=== PATIENT | female | born 1940 | race Caucasian/White ===

== ENCOUNTER 2017-09-16 21:42 | Inpatient (IN) | payer MEDICARE, MEDICAID ==
[~2017-09-16] VITALS: Ht 170.2 cm; Wt 69.9 kg
[~2017-09-16 21:42] MED LIST: AMOX500C2; DIA2T; EFAV600T; FURO20TA3; LISI-206; MECL25CH20; OMEP20TA44; OXYCONTIN; PEGANONE; PREMARIN; PRO10T; TENO300T; [UNRECOGNIZED DRUG - CODE]
[2017-09-16 22:13] LABS: Basophils # (auto) 0.1 uL; Basophils % (auto) 0.4 % (0.0-2.0); Eosinophils # (auto) 0.1 uL; Eosinophils % (auto) 0.7 % (0.0-7.0); Hematocrit 43.2 % (36.0-46.0); Hemoglobin 14.4 g/dL (12.2-16.2); Lymphocytes # (auto) 2.4 uL; Lymphocytes % (auto) 17.8 % (10.0-50.0); Mean Corpuscular Hgb Conc. 33.5 g/dL (32.0-36.0); Mean Corpuscular Volume 95.6 fL (80.0-100.0); Monocytes # (auto) 0.6 uL; Monocytes % (auto) 4.5 % (0.0-12.0); Neutrophils # (auto) 10.2 uL; Neutrophils % (auto) 76.6 % (37.0-80.0); Platelet Count (auto) 310 10^3/uL (140-450); Red Blood Cells 4.52 10^6/uL (4.0-5.20); Red Cell Distribution Width 14.4 % (11.8-14.3); White Blood Cell 13.4 10^3/uL (4.4-10.8)
[2017-09-16 22:38] LABS: Albumin 2.9 g/dL (3.4-5.0); Blood Urea Nitrogen 14 mg/dL (7-18); Calcium 8.3 mg/dL (8.5-10.1); Chloride 106 mmol/L (98-107); Lipase 84 U/L (73-393); Potassium 3.6 mmol/L (3.5-5.1); Sodium 138 mmol/L (136-145)
[2017-09-16 22:41] LABS: Alanine Aminotransferase 32 U/L (13-56); Amylase 33 U/L (25-115); Anion Gap 12 (5-15); Aspartate Aminotransferase 61 U/L (15-37); BUN/Creatinine Ratio 13.3; Carbon Dioxide 20 mmol/L (21-32); GFR African American 66 mL/min; GFR Non-African American 54 mL/min; Glucose 170 mg/dL (74-106)
[2017-09-16 22:43] LABS: INR 0.99 (0.9-1.15); Partial Thromboplastin Time 36.8 sec (22.64-33.71); Prothrombin Time 10.8 sec (9.37-12.3)
[2017-09-16] MEDS ORDERED: ONDANSETRON HCL 4 MG/2 ML VIAL IV ONE (22:45)
[2017-09-16] MEDS ORDERED: SODIUM CHLORIDE 0.9% 500 ML IV ONE (22:45)
[2017-09-16] MEDS ORDERED: MORPHINE SULFATE 4 MG/ML SYR/VIAL IV ONE (22:45)
[2017-09-16 22:51] LABS: Alkaline Phosphatase 116 U/L (45-117); Bilirubin, Total 0.4 mg/dL (0.2-1.0); Total Protein 8.3 g/dL (6.4-8.2)
[2017-09-17] MEDS ORDERED: KETOROLAC TROMETH 30 MG/ML 1ML VIAL IV ONE ×2 (01:30→01:45)
[2017-09-17] MEDS ORDERED: LORazepam 2MG/ML-1ML VIAL IV ONE (01:45)
[2017-09-17] MEDS ORDERED: ACETAMINOPHEN 325 MG TAB PO PRN (03:45)
[2017-09-17] MEDS ORDERED: FLEET ENEMA(ADULT) 135 ML PR ONE (03:45)
[2017-09-17 04:56] LABS: Urine Bacteria FEW /hpf (None Seen); Urine Blood Negative /uL (Negative); Urine Specific Gravity 1.022 (1.001-1.035); Urine WBC 101 /hpf (0 - 5)
[2017-09-17] MEDS: SODIUM CHLORIDE 0.9% 1,000 ML IV SCH ×2 (05:00→18:35)
[2017-09-17] MEDS: FAMOTIDINE 20 MG TAB PO SCH ×2 (09:55→21:13)
[2017-09-17] MEDS: ENOXAPARIN SOD 40 MG/0.4 ML SYRINGE SC SCH (09:55)
[2017-09-17] MEDS: DOCUSATE SOD 100 MG CAP PO SCH ×2 (09:55→21:13)
[2017-09-17] MEDS ORDERED: SUSTIVA 600 MG PO SCH (10:00)
[2017-09-17] MEDS ORDERED: VIREAD 300 MG PO SCH (10:00)
[2017-09-17] MEDS ORDERED: LISINOPRIL 10 MG TAB PO SCH (10:00)
[2017-09-17] MEDS ORDERED: PEGANONE PO SCH (10:00)
[2017-09-17] MEDS ORDERED: EPZICOM PO SCH (10:00)
[2017-09-17] MEDS: KETOROLAC TROMETH 30 MG/ML 1ML VIAL IV PRN ×2 (11:01→21:13)
[2017-09-17] MEDS: FUROSEMIDE 20 MG TAB PO SCH (11:14)
[2017-09-17 12:00] VITALS: BP 143/61
[2017-09-17] MEDS ORDERED: cefTRIAXone 1GM/10ml IVPUSH 10 ML IV ONE (13:00)
[2017-09-17] MEDS ORDERED: LISI2.5T47 PO (15:01)
[2017-09-17] MEDS ORDERED: OXYC80TA PO (15:02)
[2017-09-17] MEDS ORDERED: OME20GT PO (15:05)
[2017-09-17] MEDS ORDERED: ESTR0.3T PO (15:06)
[2017-09-17] MEDS ORDERED: DIAZ-104 PO (15:09)
[2017-09-17] MEDS ORDERED: OMEP20TA PO (15:12)
[2017-09-17] MEDS ORDERED: PRO10T PO (15:16)
[2017-09-17] MEDS ORDERED: LUBI24CA6 PO (15:17)
[2017-09-17 17:15] VITALS: BP 135/75
[2017-09-17] MEDS: EPZICOM PO SCH (18:35)
[2017-09-17] MEDS: SUSTIVA 600 MG PO SCH (18:36)
[2017-09-17] MEDS: VIREAD 300 MG PO SCH (18:36)
[2017-09-17 22:00] VITALS: BP 128/58
[2017-09-18] VITALS (7 sets, daily range): BP systolic 127–142; BP diastolic 55–75
[2017-09-18] MEDS: SODIUM CHLORIDE 0.9% 1,000 ML IV SCH ×2 (05:58→17:53)
[2017-09-18 07:22] LABS: Basophils # (auto) 0 uL; Basophils % (auto) 0.6 % (0.0-2.0); Eosinophils # (auto) 0.1 uL; Eosinophils % (auto) 2.3 % (0.0-7.0); Lymphocytes # (auto) 1.3 uL; Lymphocytes % (auto) 25.9 % (10.0-50.0); Mean Corpuscular Hemoglobin 32.3 pg (28.0-32.0); Mean Corpuscular Hgb Conc. 33.4 g/dL (32.0-36.0); Mean Corpuscular Volume 96.8 fL (80.0-100.0); Monocytes # (auto) 0.3 uL; Monocytes % (auto) 6.4 % (0.0-12.0); Neutrophils # (auto) 3.2 uL; Neutrophils % (auto) 64.8 % (37.0-80.0); Nucleated Red Blood Cells % 0.1 %; Platelet Count (auto) 246 10^3/uL (140-450); Red Blood Cells 4.03 10^6/uL (4.0-5.20); Red Cell Distribution Width 14.6 % (11.8-14.3)
[2017-09-18 07:45] LABS: Albumin 2.6 g/dL (3.4-5.0); BUN/Creatinine Ratio 8.8; Bilirubin, Total 0.5 mg/dL (0.2-1.0); Calcium 7.5 mg/dL (8.5-10.1); Potassium 3.5 mmol/L (3.5-5.1); Total Protein 7.1 g/dL (6.4-8.2)
[2017-09-18] MEDS: cefTRIAXone 1GM/10ml IVPUSH 10 ML IV SCH (09:53)
[2017-09-18] MEDS: LISINOPRIL 5 MG TAB PO SCH ×2 (09:55→23:01)
[2017-09-18] MEDS: FAMOTIDINE 20 MG TAB PO SCH (09:56)
[2017-09-18] MEDS: DOCUSATE SOD 100 MG CAP PO SCH ×2 (09:58→22:00)
[2017-09-18] MEDS: ENOXAPARIN SOD 40 MG/0.4 ML SYRINGE SC SCH (09:58)
[2017-09-18] MEDS: FUROSEMIDE 20 MG TAB PO SCH (09:58)
[2017-09-18] MEDS: DIAZEPAM 2 MG TAB PO SCH (12:24)
[2017-09-18] MEDS: PEGANONE PO SCH (12:25)
[2017-09-18] MEDS: KETOROLAC TROMETH 30 MG/ML 1ML VIAL IV PRN ×2 (15:04→23:00)
[2017-09-18] MEDS: ONDANSETRON HCL 4 MG/2 ML VIAL IV PRN (15:06)
[2017-09-18] MEDS ORDERED: KETOROLAC TROMETH 30 MG/ML 1ML VIAL IV ONE (17:00)
[2017-09-18] MEDS: EPZICOM PO SCH (18:04)
[2017-09-18] MEDS: VIREAD 300 MG PO SCH (18:04)
[2017-09-18] MEDS: SUSTIVA 600 MG PO SCH (18:04)
[2017-09-18 18:25] LABS: Amylase 31 U/L (25-115); Lipase 273 U/L (73-393)
[2017-09-18] MEDS: PANTOPRAZOLE 40 MG TAB PO SCH (23:00)
[2017-09-19] MEDS ORDERED: KETOROLAC TROMETH 30 MG/ML 1ML VIAL IV ONE (00:15)
[2017-09-19] MEDS: ONDANSETRON HCL 4 MG/2 ML VIAL IV PRN ×3 (02:09→22:36)
[2017-09-19] MEDS: DIAZEPAM 2 MG TAB PO SCH (02:10)
[2017-09-19 05:32] LABS: Basophils # (auto) 0 uL; Basophils % (auto) 0.8 % (0.0-2.0); Eosinophils # (auto) 0.1 uL; Eosinophils % (auto) 1.2 % (0.0-7.0); Hemoglobin 12.7 g/dL (12.2-16.2); Lymphocytes # (auto) 1.5 uL; Lymphocytes % (auto) 26.4 % (10.0-50.0); Mean Corpuscular Hemoglobin 32.1 pg (28.0-32.0); Mean Corpuscular Hgb Conc. 33.3 g/dL (32.0-36.0); Mean Corpuscular Volume 96.3 fL (80.0-100.0); Monocytes # (auto) 0.4 uL; Monocytes % (auto) 6.5 % (0.0-12.0); Neutrophils # (auto) 3.6 uL; Neutrophils % (auto) 65.1 % (37.0-80.0); Nucleated Red Blood Cells % 0.1 %; Platelet Count (auto) 236 10^3/uL (140-450); Red Blood Cells 3.95 10^6/uL (4.0-5.20); Red Cell Distribution Width 14.8 % (11.8-14.3); White Blood Cell 5.5 10^3/uL (4.4-10.8)
[2017-09-19 05:53] LABS: Albumin 2.4 g/dL (3.4-5.0); BUN/Creatinine Ratio 8.3; Calcium 7.6 mg/dL (8.5-10.1); Potassium 3.3 mmol/L (3.5-5.1)
[2017-09-19 05:55] LABS: Bilirubin, Total 1.4 mg/dL (0.2-1.0); Total Protein 7.1 g/dL (6.4-8.2)
[2017-09-19 05:58] VITALS: BP 137/69
[2017-09-19] MEDS: SODIUM CHLORIDE 0.9% 1,000 ML IV SCH ×2 (06:11→18:15)
[2017-09-19] MEDS: KETOROLAC TROMETH 30 MG/ML 1ML VIAL IV PRN ×4 (06:11→22:37)
[2017-09-19 07:43] VITALS: BP 128/59
[2017-09-19] MEDS ORDERED: GASTROGRAFIN 120 ML SOL ONE ×2 (08:41→09:24)
[2017-09-19] MEDS ORDERED: EZ-GAS II GRANULES (RADIOLOGY USE) PO ONE ×2 (08:42→09:24)
[2017-09-19] MEDS: cefTRIAXone 1GM/10ml IVPUSH 10 ML IV SCH (09:27)
[2017-09-19 11:51] VITALS: BP 122/55
[2017-09-19] MEDS: FUROSEMIDE 20 MG TAB PO SCH (12:00)
[2017-09-19] MEDS: DOCUSATE SOD 100 MG CAP PO SCH ×2 (12:01→22:00)
[2017-09-19] MEDS: PANTOPRAZOLE 40 MG TAB PO SCH ×2 (12:01→22:34)
[2017-09-19] MEDS: LISINOPRIL 5 MG TAB PO SCH ×2 (12:02→22:35)
[2017-09-19] MEDS: PEGANONE PO SCH (12:03)
[2017-09-19 16:23] VITALS: BP 138/48
[2017-09-19] MEDS: EPZICOM PO SCH (18:12)
[2017-09-19] MEDS: SUSTIVA 600 MG PO SCH (18:12)
[2017-09-19] MEDS: VIREAD 300 MG PO SCH (18:13)
[2017-09-19] MEDS ORDERED: POTASSIUM CHL 10 Meq TABLET PO ONE (20:00)
[2017-09-19 22:00] VITALS: BP 126/52
[2017-09-20] MEDS ORDERED: traZODone HCL 50 MG TAB PO ONE (00:30)
[2017-09-20 04:59] VITALS: BP 111/40
[2017-09-20 05:49] LABS: Basophils # (auto) 0 uL; Basophils % (auto) 0.4 % (0.0-2.0); Eosinophils # (auto) 0.1 uL; Hematocrit 36.3 % (36.0-46.0); Hemoglobin 11.9 g/dL (12.2-16.2); Lymphocytes # (auto) 1.1 uL; Lymphocytes % (auto) 18.5 % (10.0-50.0); Mean Corpuscular Hemoglobin 32.5 pg (28.0-32.0); Mean Corpuscular Hgb Conc. 32.9 g/dL (32.0-36.0); Mean Corpuscular Volume 98.8 fL (80.0-100.0); Monocytes # (auto) 0.5 uL; Monocytes % (auto) 7.7 % (0.0-12.0); Neutrophils # (auto) 4.5 uL; Neutrophils % (auto) 72.4 % (37.0-80.0); Nucleated Red Blood Cells % 0.1 %; Platelet Count (auto) 224 10^3/uL (140-450); Red Blood Cells 3.68 10^6/uL (4.0-5.20); White Blood Cell 6.2 10^3/uL (4.4-10.8)
[2017-09-20 06:05] LABS: Albumin 2.5 g/dL (3.4-5.0); BUN/Creatinine Ratio 11.1; Bilirubin, Total 1.3 mg/dL (0.2-1.0); Calcium 7.8 mg/dL (8.5-10.1); Potassium 3.2 mmol/L (3.5-5.1); Total Protein 6.7 g/dL (6.4-8.2)
[2017-09-20] MEDS: SODIUM CHLORIDE 0.9% 1,000 ML IV SCH ×2 (06:46→19:15)
[2017-09-20 07:45] VITALS: BP 116/38
[2017-09-20 08:00] VITALS: BP 115/37
[2017-09-20] MEDS ORDERED: POTASSIUM CHL 10% (20 MEQ/15ML) 15ml ORAL SOLN PO ONE (09:00)
[2017-09-20] MEDS: KETOROLAC TROMETH 30 MG/ML 1ML VIAL IV PRN ×3 (09:15→22:00)
[2017-09-20] MEDS: FUROSEMIDE 20 MG TAB PO SCH (09:17)
[2017-09-20] MEDS: PANTOPRAZOLE 40 MG TAB PO SCH ×2 (09:17→21:59)
[2017-09-20] MEDS: DOCUSATE SOD 100 MG CAP PO SCH ×2 (09:18→21:59)
[2017-09-20] MEDS: cefTRIAXone 1GM/10ml IVPUSH 10 ML IV SCH (09:24)
[2017-09-20] MEDS: PEGANONE PO SCH (11:41)
[2017-09-20] MEDS: DIAZEPAM 2 MG TAB PO SCH (11:42)
[2017-09-20] MEDS ORDERED: HYOSCYAMINE SULF 0.125 MG TAB SL PRN (13:15)
[2017-09-20 16:25] VITALS: BP 105/46
[2017-09-20] MEDS: VIREAD 300 MG PO SCH (17:59)
[2017-09-20] MEDS: SUSTIVA 600 MG PO SCH (17:59)
[2017-09-20] MEDS: EPZICOM PO SCH (17:59)
[2017-09-20] MEDS: POTASSIUM CHL 10% (20 MEQ/15ML) 15ml ORAL SOLN PO SCH ×2 (18:00→18:03)
[2017-09-20 21:45] VITALS: BP 122/51
[2017-09-21 05:14] VITALS: BP 129/52
[2017-09-21 06:35] LABS: Basophils # (auto) 0 uL; Basophils % (auto) 0.5 % (0.0-2.0); Eosinophils # (auto) 0 uL; Eosinophils % (auto) 0.6 % (0.0-7.0); Hematocrit 36.4 % (36.0-46.0); Hemoglobin 12.3 g/dL (12.2-16.2); Lymphocytes # (auto) 1.1 uL; Lymphocytes % (auto) 14.6 % (10.0-50.0); Mean Corpuscular Hemoglobin 32.9 pg (28.0-32.0); Mean Corpuscular Hgb Conc. 33.8 g/dL (32.0-36.0); Mean Corpuscular Volume 97.2 fL (80.0-100.0); Monocytes # (auto) 0.5 uL; Monocytes % (auto) 6.7 % (0.0-12.0); Neutrophils # (auto) 6.1 uL; Neutrophils % (auto) 77.6 % (37.0-80.0); Platelet Count (auto) 239 10^3/uL (140-450); Red Blood Cells 3.74 10^6/uL (4.0-5.20); Red Cell Distribution Width 15.4 % (11.8-14.3); White Blood Cell 7.9 10^3/uL (4.4-10.8)
[2017-09-21 06:57] LABS: Albumin 2.6 g/dL (3.4-5.0); Bilirubin, Total 1.8 mg/dL (0.2-1.0); Calcium 8.3 mg/dL (8.5-10.1); Potassium 3.3 mmol/L (3.5-5.1)
[2017-09-21] MEDS: SODIUM CHLORIDE 0.9% 1,000 ML IV SCH ×2 (07:45→20:15)
[2017-09-21 08:00] VITALS: BP 119/56
[2017-09-21] MEDS ORDERED: POTASSIUM CHL 10% (20 MEQ/15ML) 15ml ORAL SOLN PO ONE (09:00)
[2017-09-21] MEDS: POTASSIUM CHL 10% (20 MEQ/15ML) 15ml ORAL SOLN PO SCH (10:00)
[2017-09-21] MEDS: KETOROLAC TROMETH 30 MG/ML 1ML VIAL IV PRN ×2 (10:14→17:49)
[2017-09-21] MEDS: FUROSEMIDE 20 MG TAB PO SCH (10:20)
[2017-09-21 12:00] VITALS: BP 139/60
[2017-09-21] MEDS: PEGANONE PO SCH (12:00)
[2017-09-21] MEDS: DIAZEPAM 2 MG TAB PO SCH (12:17)
[2017-09-21] MEDS: EPZICOM PO SCH (12:18)
[2017-09-21 17:30] VITALS: BP 156/51
[2017-09-21] MEDS: SUSTIVA 600 MG PO SCH (17:46)
[2017-09-21] MEDS: VIREAD 300 MG PO SCH (17:47)
[2017-09-21] MEDS: HYOSCYAMINE SULF 0.125 MG TAB PO PRN ×2 (17:50→17:51)
[2017-09-21] MEDS: BOOST 8 ounces PO SCH (18:00)
[2017-09-21] MEDS: ONDANSETRON HCL 4 MG/2 ML VIAL IV PRN (21:56)
[2017-09-21 22:00] VITALS: BP 123/53
[2017-09-22] MEDS: KETOROLAC TROMETH 30 MG/ML 1ML VIAL IV PRN ×3 (00:02→17:58)
[2017-09-22 05:00] VITALS: BP 131/66
[2017-09-22 08:00] VITALS: BP 93/45
[2017-09-22] MEDS: BOOST 8 ounces PO SCH ×2 (08:00→17:57)
[2017-09-22] MEDS: FUROSEMIDE 20 MG TAB PO SCH (10:11)
[2017-09-22] MEDS: POTASSIUM CHL 10% (20 MEQ/15ML) 15ml ORAL SOLN PO SCH (10:12)
[2017-09-22] MEDS: SODIUM CHLORIDE 0.9% 1,000 ML IV SCH ×2 (10:18→21:15)
[2017-09-22] MEDS: ONDANSETRON HCL 4 MG/2 ML VIAL IV PRN ×2 (10:22→19:44)
[2017-09-22] MEDS: DIAZEPAM 2 MG TAB PO SCH (11:49)
[2017-09-22] MEDS: CHOLESTYRAMINE 4 GM POWDER PO SCH ×2 (11:50→22:09)
[2017-09-22] MEDS: PEGANONE PO SCH (11:50)
[2017-09-22 12:00] VITALS: BP 125/49
[2017-09-22] MEDS ORDERED: CHOLESTYRAMINE 4 GM POWDER PO SCH (12:00)
[2017-09-22 17:00] VITALS: BP 152/70
[2017-09-22] MEDS: SUSTIVA 600 MG PO SCH (17:57)
[2017-09-22] MEDS: EPZICOM PO SCH (17:57)
[2017-09-22] MEDS: VIREAD 300 MG PO SCH (17:57)
[2017-09-22 22:00] VITALS: BP 131/57
[2017-09-23] MEDS: HYOSCYAMINE SULF 0.125 MG TAB PO PRN ×2 (01:01→06:25)
[2017-09-23] MEDS: KETOROLAC TROMETH 30 MG/ML 1ML VIAL IV PRN ×2 (01:01→06:24)
[2017-09-23 05:00] VITALS: BP 144/69
[2017-09-23 09:05] VITALS: BP 132/63
== END 2017-09-23 11:30 | disposition home or self-care (01) | DRG 391 ==
LOC: ER 21:42 → OVERFLOW 21:43 → CENTRAL 09-17 11:33
PROVIDERS: ADMIT Nurse Practitioner; ATTEND Family Medicine
DX: K59.00 Constipation, unspecified (principal); E43 Unspecified severe protein-calorie malnutrition; E86.0 Dehydration; I34.1 Nonrheumatic mitral (valve) prolapse; K75.9 Inflammatory liver disease, unspecified; K76.0 Fatty (change of) liver, not elsewhere classified; N39.0 Urinary tract infection, site not specified; Z79.899 Other long term (current) drug therapy; K57.30 Diverticulosis of large intestine without perforation or abscess without bleeding; F41.9 Anxiety disorder, unspecified; I10 Essential (primary) hypertension; G89.29 Other chronic pain; K22.4 Dyskinesia of esophagus; K52.9 Noninfective gastroenteritis and colitis, unspecified; K22.5 Diverticulum of esophagus, acquired; Z90.49 Acquired absence of other specified parts of digestive tract; Z90.710 Acquired absence of both cervix and uterus; Z88.5 Allergy status to narcotic agent; Z88.8 Allergy status to other drugs, medicaments and biological substances
CPT/HCPCS: 36415; 71045; 71046; 74176; 74247; 76705; 80053; 81001; 82150; 83690; 83880; 83986; 84443; 84484; 85025; 85048; 85610; 85730; 87040; 87081; 87086; 87493; 93005; 94761; 96361; 96372; 96374; 96375; 97116; J1885; J2405

== ENCOUNTER → 2018-05-09 | Outpatient (CLI) | payer MEDICARE, MEDICAID ==
[~2018-05-09] MED LIST changes: -AMOX500C2; -DIA2T; -EFAV600T; +EFAV600T PO; -FURO20TA3; -LISI-206; +LISI2.5T47 PO; +LUBI24CA6 PO; -MECL25CH20; +OMEP20TA PO; -OMEP20TA44; +OXYC80TA PO; -OXYCONTIN; -PREMARIN; -PRO10T; +PRO10T PO; -TENO300T; +TENO300T PO; -[UNRECOGNIZED DRUG - CODE]; +[UNRECOGNIZED DRUG - CODE] PO
[2018-05-09 10:43] LABS: Folate (Folic Acid) 9.56 ng/mL (5.38-24)
== END | disposition home or self-care (01) ==
LOC: LAB 09:17
PROVIDERS: ATTEND Internal Medicine
DX: B20 Human immunodeficiency virus [HIV] disease (principal)
CPT/HCPCS: 82607; 82746; 87522

== ENCOUNTER 2018-06-26 16:42 | Emergency (ER) | payer MEDICARE, MEDICAID ==
[~2018-06-26] VITALS: Ht 167.6 cm; Wt 64.4 kg
[2018-06-26 19:30] VITALS: BP 110/70
== END 2018-06-26 19:40 | disposition home or self-care (01) ==
LOC: ER 16:44
DX: S29.011A Strain of muscle and tendon of front wall of thorax, initial encounter (principal); B20 Human immunodeficiency virus [HIV] disease; M25.552 Pain in left hip; M79.652 Pain in left thigh; Z88.6 Allergy status to analgesic agent; Z88.8 Allergy status to other drugs, medicaments and biological substances; W18.39XA Other fall on same level, initial encounter; Y93.89 Activity, other specified; Y92.098 Other place in other non-institutional residence as the place of occurrence of the external cause; Y99.8 Other external cause status
CPT/HCPCS: 71250; 73700; 74176

== ENCOUNTER 2019-12-28 10:40 | Inpatient (IN) | payer MEDICARE, MEDICAID ==
[~2019-12-28] VITALS: Ht 167.6 cm; Wt 68.5 kg
[~2019-12-28 10:40] MED LIST changes: -PRO10T PO; +PROC10TA2 PO
[2019-12-28 12:34] LABS: Basophils # (auto) 0 10 ^3/uL (0-0.2); Basophils % (auto) 0.2 % (0.0-2.0); Eosinophils # (auto) 0.1 10 ^3/uL (0-0.8); Eosinophils % (auto) 0.5 % (0.0-7.0); Hematocrit 51.5 % (36.0-46.0); Hemoglobin 16.8 g/dL (12.2-16.2); Lymphocytes # (auto) 2.4 10 ^3/uL (0.4-5.4); Lymphocytes % (auto) 15.8 % (10.0-50.0); Mean Corpuscular Hemoglobin 30.9 pg (28.0-32.0); Mean Corpuscular Hgb Conc. 32.5 g/dL (32.0-36.0); Mean Corpuscular Volume 94.9 fL (80.0-100.0); Monocytes % (auto) 6.7 % (0.0-12.0); Neutrophils # (auto) 11.7 10 ^3/uL (1.6-8.6); Neutrophils % (auto) 76.8 % (37.0-80.0); Platelet Count (auto) 354 10^3/uL (140-450); Red Blood Cells 5.43 10^6/uL (4.0-5.20); Red Cell Distribution Width 14.7 % (11.8-14.3); White Blood Cell 15.3 10^3/uL (4.4-10.8)
[2019-12-28 13:02] LABS: Anion Gap 8 (5-15); Blood Urea Nitrogen 35 mg/dL (7-18); Carbon Dioxide 18 mmol/L (21-32); Chloride 112 mmol/L (98-107); Glucose 136 mg/dL (74-106); Potassium 3.1 mmol/L (3.5-5.1); Sodium 138 mmol/L (136-145)
[2019-12-28 13:03] LABS: Alanine Aminotransferase 29 U/L (13-56); Albumin 3.5 g/dL (3.4-5.0); Alkaline Phosphatase 103 U/L (45-117); Aspartate Aminotransferase 25 U/L (15-37); BUN/Creatinine Ratio 29.7; Bilirubin, Total 0.6 mg/dL (0.2-1.0); Calcium 9.2 mg/dL (8.5-10.1); GFR African American 57 mL/min; GFR Non-African American 47 mL/min; Magnesium 2.7 mg/dL (1.6-2.6); Total Protein 8.5 g/dL (6.4-8.2)
[2019-12-28] MEDS ORDERED: MORPHINE SULFATE 4 MG/ML SYR/VIAL IV ONE (13:15)
[2019-12-28] MEDS ORDERED: ONDANSETRON HCL 4 MG/2 ML VIAL IV ONE ×2 (13:15→14:15)
[2019-12-28 13:34] LABS: Amylase 69 U/L (25-115); Lipase 369 U/L (73-393)
[2019-12-28] MEDS ORDERED: oxyCODONE ER 20 MG TAB PO ONE (15:00)
[2019-12-28] MEDS ORDERED: LORazepam 2MG/ML-1ML VIAL IV ONE (16:15)
[2019-12-28] MEDS ORDERED: SODIUM CHLORIDE 0.9% 1,000 ML IV ONE (17:00)
[2019-12-28] MEDS ORDERED: metroNIDAZOLE 500MG/100ML 100 ML IV ONE (17:00)
[2019-12-28] MEDS ORDERED: NITROGLYCERIN 0.4 MG SL TAB SL PRN ×2 (18:45→21:00)
[2019-12-28] MEDS ORDERED: SODIUM CHLORIDE 0.9% 1,000 ML IV SCH (19:03)
[2019-12-28] MEDS ORDERED: FAMOTIDINE (10MG/ML) 2ML VL IV SCH ×2 (19:15→22:00)
[2019-12-28] MEDS ORDERED: traMADol HCL 50 MG TAB PO PRN (19:15)
[2019-12-28] MEDS ORDERED: ACETAMINOPHEN 500 MG TAB PO PRN ×2 (19:15→21:00)
[2019-12-28] MEDS ORDERED: cefTRIAXone 1GM/50ML D5W 50 ML IV ONE ×2 (19:15→21:05)
[2019-12-28] MEDS ORDERED: ONDANSETRON HCL 4 MG/2 ML VIAL IV PRN (19:15)
[2019-12-28] MEDS ORDERED: POTASSIUM EFFERVESENT TAB 25 MEQ PO ONE (19:30)
[2019-12-28] MEDS ORDERED: SOD CHL 0.9%/ KCL 40MEQ 1,000 ML IV SCH (19:45)
--- NOTE | 2019-12-28 20:22 | NUR ---
Telemetry admit from ER ASAD PAUL admitted to Telemetry unit after SBAR received. Patient oriented to Charla Buckner, primary RN, unit, room, bed, and unit policies regarding patient care and visiting hours. Patient now on continuous telemetry monitoring, tele box # [50] and telemetry reading on arrival to unit is [SB 57]. PATIENT DENIED PAIN AND NAUSEA AT THIS TIME. Patient weighed by bedscale and encouraged to call if they need something. All questions and concerns addressed, patient verbalized understanding. Note: []
[2019-12-28 20:40] VITALS: BP 133/61
--- NOTE | 2019-12-28 21:00 | NUR ---
PHARMACY CALLED TO FIX PATIENT'S MEDICATION IN PYXIS. CONTINUE CARE.
[2019-12-28] MEDS ORDERED: POTASSIUM EFFERVESENT TAB 25 MEQ ONE (21:06)
[2019-12-28] MEDS: ATORVASTATIN 20 MG TAB PO SCH (21:16)
[2019-12-28] MEDS: SOD CHL 0.9%/ KCL 40MEQ 1,000 ML IV SCH (21:19)
[2019-12-28 22:00] VITALS: BP 133/61
[2019-12-28] MEDS ORDERED: METOPROLOL TARTRATE 25 MG TAB PO SCH (22:00)
[2019-12-28] MEDS ORDERED: ATORVASTATIN 20 MG TAB PO SCH (22:00)
[2019-12-28] MEDS: METOPROLOL TARTRATE 25 MG TAB PO SCH (22:00)
[2019-12-28] MEDS ORDERED: metroNIDAZOLE 500MG/100ML 100 ML IV SCH (22:00)
[2019-12-28] MEDS ORDERED: BICT1TAB PO (22:08)
[2019-12-28] MEDS: metroNIDAZOLE 500MG/100ML 100 ML IV SCH (22:53)
--- NOTE | 2019-12-29 02:19 | NUR ---
PATIENT SLEEPING. NO S/S OF DISTRESS NOTED. CONTINUE TO MONITOR.
[2019-12-29 05:00] VITALS: BP 124/60
[2019-12-29] MEDS: SOD CHL 0.9%/ KCL 40MEQ 1,000 ML IV SCH ×2 (05:54→17:28)
[2019-12-29] MEDS: metroNIDAZOLE 500MG/100ML 100 ML IV SCH (05:54)
--- NOTE | 2019-12-29 06:42 | NUR ---
PATIENT'S OWN MEDICATIONS SENT TO PHARMACY.
--- NOTE | 2019-12-29 07:45 | NUR ---
Opening shift note Assumed care of patient from NOC RN. Patient is AOx4 no s/s of distress or SOB noted. Bed is in lowest locked position, side rails up x2, and call light is within reach. Updated patient on plan of care and patient verbalized understanding. Will continue to monitor.
[2019-12-29 09:00] VITALS: BP 116/46
[2019-12-29] MEDS ORDERED: cefTRIAXone 1GM/50ML D5W 50 ML IV SCH (09:00)
[2019-12-29] MEDS ORDERED: NITROGLYCERIN 0.2MG/HR TOPICAL PATCH TD SCH (10:00)
[2019-12-29] MEDS: METOPROLOL TARTRATE 25 MG TAB PO SCH ×2 (10:00→21:47)
[2019-12-29] MEDS ORDERED: ASPirin 81 mg TAB PO SCH (10:00)
[2019-12-29] MEDS ORDERED: PEGANONE PO SCH ×2 (10:00)
[2019-12-29] MEDS ORDERED: [UNRECOGNIZED DRUG - OTHER] PO SCH ×2 (10:00)
[2019-12-29] MEDS ORDERED: ENOXAPARIN SOD 40 MG/0.4 ML SYRINGE SC SCH (10:00)
--- NOTE | 2019-12-29 10:10 | NUR ---
Physician rounding Dr. Riddle at bedside, updated patient on plan of care and patient verbalized understanding. New orders received, will follow through.
[2019-12-29] MEDS: FAMOTIDINE (10MG/ML) 2ML VL IV SCH (11:28)
[2019-12-29] MEDS: cefTRIAXone 1GM/50ML D5W 50 ML IV SCH (11:28)
[2019-12-29] MEDS: ASPirin 81 mg TAB PO SCH (11:29)
[2019-12-29] MEDS: traMADol HCL 50 MG TAB PO PRN ×2 (11:30→17:28)
[2019-12-29] MEDS: ENOXAPARIN SOD 40 MG/0.4 ML SYRINGE SC SCH (11:31)
[2019-12-29] MEDS: NITROGLYCERIN 0.2MG/HR TOPICAL PATCH TD SCH (11:32)
[2019-12-29 13:00] VITALS: BP 119/49
[2019-12-29] MEDS: [UNRECOGNIZED DRUG - OTHER] PO SCH (13:21)
[2019-12-29] MEDS: TENOFOVIR ALAFENAMIDE PO SCH (13:21)
[2019-12-29] MEDS: BICTEGRAVIR PO SCH (13:21)
[2019-12-29] MEDS: EMTRICITABINE PO SCH (13:21)
--- NOTE | 2019-12-29 13:23 | NUR ---
Physician rounding Dr.N. Warren at bedside, MD updated patient on plan of care, patient verbalized understanding. New orders received, will follow through and will continue care.
[2019-12-29] MEDS: PEGANONE PO SCH (13:27)
--- NOTE | 2019-12-29 14:25 | NUR ---
Received call from microbiology Patient stool tested for C-Diff resulted positive. Will inform MD and charge nurse.
--- NOTE | 2019-12-29 14:27 | NUR ---
Notified MD Riddle regarding lab result, awaiting call back.
--- NOTE | 2019-12-29 14:34 | NUR ---
Received call back from New orders received from Dr. Riddle, will follow thorough.
[2019-12-29 15:28] LABS: Urine Bacteria FEW /hpf (None Seen); Urine Blood TRACE /uL (Negative); Urine Mucus FEW (None Seen); Urine Specific Gravity 1.022 (1.001-1.035); Urine WBC 93 /hpf (0 - 5)
[2019-12-29 15:54] LABS: Alcohol, Urine < 3.0 mg/dL (0-10); Amphetamine Screen, Urine NEGATIVE (NEGATIVE); Barbiturate Scree,Urine NEGATIVE (NEGATIVE); Benzodiazephine Screen, Urine NEGATIVE (NEGATIVE); Cannabinoid Screen, Urine NEGATIVE (NEGATIVE); Cocaine Screen, Urine NEGATIVE (NEGATIVE); Opiate Scree,Urine NEGATIVE (NEGATIVE); Phencyclidine Screen, Urine NEGATIVE (NEGATIVE)
[2019-12-29] MEDS: VANCOMYCIN HCL 125MG/5ML ORAL SOL PO SCH ×3 (16:16→23:36)
[2019-12-29 17:00] VITALS: BP 106/47
[2019-12-29 17:11] LABS: Basophils # (auto) 0.1 10 ^3/uL (0-0.2); Basophils % (auto) 0.6 % (0.0-2.0); Eosinophils # (auto) 0.1 10 ^3/uL (0-0.8); Eosinophils % (auto) 0.6 % (0.0-7.0); Hematocrit 44.1 % (36.0-46.0); Hemoglobin 14.4 g/dL (12.2-16.2); Lymphocytes # (auto) 1.6 10 ^3/uL (0.4-5.4); Lymphocytes % (auto) 15.7 % (10.0-50.0); Mean Corpuscular Hemoglobin 31.1 pg (28.0-32.0); Mean Corpuscular Hgb Conc. 32.6 g/dL (32.0-36.0); Mean Corpuscular Volume 95.4 fL (80.0-100.0); Monocytes # (auto) 0.4 10 ^3/uL (0-1.3); Monocytes % (auto) 4.2 % (0.0-12.0); Neutrophils % (auto) 78.9 % (37.0-80.0); Platelet Count (auto) 278 10^3/uL (140-450); Red Blood Cells 4.62 10^6/uL (4.0-5.20); Red Cell Distribution Width 14.6 % (11.8-14.3); White Blood Cell 10.2 10^3/uL (4.4-10.8)
[2019-12-29 17:16] LABS: Albumin 2.9 g/dL (3.4-5.0); Calcium 8.1 mg/dL (8.5-10.1); Magnesium 2.3 mg/dL (1.6-2.6); Potassium 3.8 mmol/L (3.5-5.1)
[2019-12-29 17:22] LABS: BUN/Creatinine Ratio 22.3; Bilirubin, Total 0.3 mg/dL (0.2-1.0); Total Protein 6.9 g/dL (6.4-8.2)
--- NOTE | 2019-12-29 18:59 | NUR ---
End of shift note Endorsed care to NOC RN. No signs and symptoms of distress noted.
--- NOTE | 2019-12-29 19:50 | NUR ---
RECEIVED PATIENT FROM DAY SHIFT RN. PATIENT RESTING IN BED. NO S/S OF DISTRESS NOTED. C/O PAIN @ 8/10 AFTER PAIN MEDICATION GIVEN EARLIER, REINFORCED SCHEDULE OF PAIN MANAGEMENT, WILL COME BACK FOR PAIN MEDICATION LATER WHEN THE TIME IS DUE AND PER PATIENT REQUESTS. POC INSTRUCTED AND ENCOURAGED PATIENT TO CALL FOR COOLER CONVEYOR LOADER IF NEEDED. BED IN LOWEST LOCKED POSITION WITH SIDE RAILS UP X 2. CALL BECERRIL WITHIN REACH. ALARM ON. CONTINUE TO MONITOR FOR CHANGES Q1H AND PRN.
--- NOTE | 2019-12-29 20:12 | NUR ---
HOSPITALIST Called/paged Dr. IQBAL called re:PATIENT C/O PAIN @ 12/15 AND STATED THAT THE PAIN MEDICATION GIVEN EARLIER DID NOT HELP. WOULD LIKE TO HAVE MORE STRONGER MEDICATION . Waiting for call back. Continue care.
--- NOTE | 2019-12-29 20:25 | NUR ---
HOSPITALIST returned call Dr. OLIVARES returned call, updated on patient status and reason for call, orders received. TORADOL 30MG IM Q8HP. Continue care.
[2019-12-29] MEDS: ONDANSETRON HCL 4 MG/2 ML VIAL IV PRN (20:50)
--- NOTE | 2019-12-29 20:50 | NUR ---
REASSESSED PAIN AT 06/17. PATIENT DENIED NAUSEA. CONTINUE TO MONITOR.
[2019-12-29] MEDS: KETOROLAC TROMETH 30 MG/ML 1ML VIAL IM PRN (20:51)
[2019-12-29] MEDS: ATORVASTATIN 20 MG TAB PO SCH (21:46)
[2019-12-29 22:00] VITALS: BP 120/44
[2019-12-30] MEDS: traMADol HCL 50 MG TAB PO PRN ×2 (00:13→23:38)
--- NOTE | 2019-12-30 00:13 | NUR ---
PATIENT C/O PAIN @ 02/14. INSTRUCTED PATIENT HER TORADOL NOT YET DUE AT THIS TIME, PATIENT IS WILLING TO TRY ULTRAM NOW. MEDICATED PATIENT ORDERED. CONTINUE TO MONITOR.
[2019-12-30] MEDS: SOD CHL 0.9%/ KCL 40MEQ 1,000 ML IV SCH ×2 (03:00→13:22)
--- NOTE | 2019-12-30 03:10 | NUR ---
PATIENT STILL C/O PAIN BUT NO PAIN MEDICATION DUE AT THIS TIME. INSTRUCTED PATIENT ON THE SCHEDULE OF PAIN MANAGEMENT. WILL COME BACK WHEN THE TIME IS DUE. CONTINUE TO MONITOR.
[2019-12-30] MEDS: KETOROLAC TROMETH 30 MG/ML 1ML VIAL IM PRN ×3 (04:55→21:59)
--- NOTE | 2019-12-30 04:55 | NUR ---
MEDICATED PATIENT FOR LEG PAIN @ 01/15 ORDERED. NO REDNESS AND SWELLING NOTED. CONTINUE TO MONITOR.
[2019-12-30 05:00] VITALS: BP 122/48
[2019-12-30] MEDS: VANCOMYCIN HCL 125MG/5ML ORAL SOL PO SCH ×4 (05:53→23:38)
--- NOTE | 2019-12-30 05:53 | NUR ---
REASSESSED PAIN @ 07/15. CONTINUE TO MONITOR.
--- NOTE | 2019-12-30 07:36 | NUR ---
Received patient from [facility] shift rn, alert and oriented x4. No SOB or s/s distress, denies pain at this time. Plan of care discussed, patient verbalized understanding. Bed in low and locked position, call light and phone within reach, bed rails x2 up. Will continue to monitor q1hr and prn.
[2019-12-30 08:00] VITALS: BP 136/48
[2019-12-30 09:00] VITALS: BP 136/58
[2019-12-30] MEDS: cefTRIAXone 1GM/50ML D5W 50 ML IV SCH (09:03)
[2019-12-30] MEDS: ASPirin 81 mg TAB PO SCH (09:03)
[2019-12-30] MEDS: FAMOTIDINE (10MG/ML) 2ML VL IV SCH (09:04)
[2019-12-30] MEDS: NITROGLYCERIN 0.2MG/HR TOPICAL PATCH TD SCH (09:05)
[2019-12-30] MEDS: PEGANONE PO SCH (09:07)
[2019-12-30] MEDS: METOPROLOL TARTRATE 25 MG TAB PO SCH (09:07)
[2019-12-30] MEDS: ENOXAPARIN SOD 40 MG/0.4 ML SYRINGE SC SCH (09:07)
[2019-12-30] MEDS: BICTEGRAVIR PO SCH (09:08)
[2019-12-30] MEDS: TENOFOVIR ALAFENAMIDE PO SCH (09:08)
[2019-12-30] MEDS: [UNRECOGNIZED DRUG - OTHER] PO SCH (09:08)
[2019-12-30] MEDS: EMTRICITABINE PO SCH (09:08)
--- NOTE | 2019-12-30 11:00 | NUR ---
patient's code status updated to DNR per Dr. Riddle. Patient signed and copy in chart
--- NOTE | 2019-12-30 11:51 | NUR ---
Placed ADONIS test to r/o covid per protocol pending transfer to SNF.
[2019-12-30 12:25] LABS: Folate (Folic Acid) 6.1 ng/mL (5.38-24)
--- NOTE | 2019-12-30 12:44 | NUR ---
Nutrition Assessment Notes Please refer to link for full assessment notes. Est Energy needs: 6281-0147 kcals (20-23 kcal/kgBW) Est Protein needs: 72-80 gms/day (1.0-1.1 gm/kgBW) Will continue to monitor and reassess prn. Addendum: 12/30/19 at [address] Amended: Links added.
[2019-12-30] MEDS ORDERED: FOLIC ACID 1 MG TAB PO ONE (12:45)
[2019-12-30] MEDS ORDERED: CYANOCOBALAMIN (B-12) 1000 MCG/1 ML VIAL SUBCUT ONE (12:45)
[2019-12-30 13:00] VITALS: BP 106/48
[2019-12-30] MEDS: ONDANSETRON HCL 4 MG/2 ML VIAL IV PRN (14:22)
--- NOTE | 2019-12-30 15:50 | NUR ---
COVID-19 test (Yarely swab) collected per protocol and taken to lab.
[2019-12-30 17:00] VITALS: BP 121/51
--- NOTE | 2019-12-30 19:40 | NUR ---
Opening Shift Note Assumed care of patient, awake and alert x4. No S/S of distress/SOB or pain. Call light is within reach, side rails up x2, bed is in the lowest position. Instructed on POC and to call for assist PRN, will continue to monitor for changes Q1hr and PRN.
--- NOTE | 2019-12-30 20:09 | NUR ---
PATIENT IS REFUSING THE [facility] INHOUSE COVID SWAB STATING SHE HAS HEMOPHILIA AND BLEEDS EASILY. EXPLAINED TO THE PATIENT THE REASON FOR THE TEST, SHE VERBALIZED UNDERSTANDING AND REFUSED.
[2019-12-30] MEDS: ATORVASTATIN 20 MG TAB PO SCH (21:51)
--- NOTE | 2019-12-30 21:59 | NUR ---
PAIN Patient is complaining of pain 10/0-10 all over, she states it is horrible and hurts everywhere. Toradol administered as ordered, will reassess.
--- NOTE | 2019-12-30 23:15 | NUR ---
PAIN REASSESSMENT Patient states pain is still horrible 10/0-10. Patient asks if there is anything else she can get for pain. Ultram given for pain, will continue to monitor.
--- NOTE | 2019-12-31 00:38 | NUR ---
Patient is now resting in bed asleep. No S/S of pain or distress noted. Call light is within reach.
--- NOTE | 2019-12-31 01:31 | NUR ---
PT refused 2199 vitals RN notified
[2019-12-31] MEDS: SOD CHL 0.9%/ KCL 40MEQ 1,000 ML IV SCH ×3 (02:58→17:04)
[2019-12-31 05:00] VITALS: BP 120/48
[2019-12-31] MEDS: VANCOMYCIN HCL 125MG/5ML ORAL SOL PO SCH ×4 (06:03→21:17)
--- NOTE | 2019-12-31 08:41 | NUR ---
Assessment Patient is a 79-year-old female who is alert and oriented. Prior to admission patient lived home alone and functioned independently. Prior to admission patient could care for her own ADLs. Patient informed me she does not have any medical equipment. Advised patient there is a social service consult for SNF placement for physical therapy. Information and choice letter was given to patient. Patient requested [facility]. Informed patient she has a right to participate in all discharge planning. Patient verbalized understanding discharge plan. Faxed clinical information to [facility]. Addendum: 12/31/19 at 0845 by LATRICE BROWN Amended: Links added.
[2019-12-31 09:00] VITALS: BP 155/88
[2019-12-31] MEDS: FAMOTIDINE (10MG/ML) 2ML VL IV SCH (09:54)
[2019-12-31] MEDS: ASPirin 81 mg TAB PO SCH (09:55)
[2019-12-31] MEDS: FOLIC ACID 1 MG TAB PO SCH (09:55)
[2019-12-31] MEDS: PEGANONE PO SCH (09:56)
[2019-12-31] MEDS: CYANOCOBALAMIN (B-12) 1000 MCG/1 ML VIAL SUBCUT SCH (09:57)
[2019-12-31] MEDS: ENOXAPARIN SOD 40 MG/0.4 ML SYRINGE SC SCH (09:57)
[2019-12-31] MEDS: [UNRECOGNIZED DRUG - OTHER] PO SCH (09:58)
[2019-12-31] MEDS: BICTEGRAVIR PO SCH (09:58)
[2019-12-31] MEDS: EMTRICITABINE PO SCH (09:58)
[2019-12-31] MEDS: TENOFOVIR ALAFENAMIDE PO SCH (09:58)
[2019-12-31] MEDS: NITROGLYCERIN 0.2MG/HR TOPICAL PATCH TD SCH (10:00)
[2019-12-31] MEDS: cefTRIAXone 1GM/50ML D5W 50 ML IV SCH (10:13)
[2019-12-31 13:00] VITALS: BP 144/60
--- NOTE | 2019-12-31 16:00 | NUR ---
REMOVED IV AND HEART MONITOR. SHE SAID THEY WERE BOTHERING HER AND SHE IS GOING HOME TOMORROW. PAGED MD TO NOTIFY PATIENT REFUSING IV AND TELE MONITOR.
[2019-12-31 17:00] VITALS: BP 138/50
--- NOTE | 2019-12-31 19:19 | NUR ---
Opening Shift Note Assumed care of patient, awake and alert. No S/S of distress/SOB or pain. Instructed on POC and to call for assist PRN. Patient refuses to have tele monitor and IV replaced. Educated patient on the importance of the tele monitor and IV access. Patient continues to refuse. Patient verbalized "I dont need it, I am going home tomorrow anyway. Will continue to monitor for changes Q1hr and PRN. Side rails up x2. Bed locked in lowest position. Call light within reach.
[2019-12-31] MEDS: ATORVASTATIN 20 MG TAB PO SCH (21:17)
[2019-12-31 21:46] VITALS: BP 117/78
[2020-01-01 05:00] VITALS: BP 139/50
[2020-01-01] MEDS: SOD CHL 0.9%/ KCL 40MEQ 1,000 ML IV SCH ×2 (05:00→15:00)
[2020-01-01] MEDS: VANCOMYCIN HCL 125MG/5ML ORAL SOL PO SCH ×3 (06:01→18:00)
--- NOTE | 2020-01-01 08:55 | NUR ---
Doctor Venkatesh at bedside discussing poc with patient. patient verbalized understanding and agrees with poc. MD informed that patient is refusing tele box and IV access. New orders received see emr for orders.
[2020-01-01 09:00] VITALS: BP 132/41
[2020-01-01] MEDS: cefTRIAXone 1GM/50ML D5W 50 ML IV SCH (09:00)
--- NOTE | 2020-01-01 09:00 | NUR ---
Stool sample sent to lab.
[2020-01-01] MEDS: CYANOCOBALAMIN (B-12) 1000 MCG/1 ML VIAL SUBCUT SCH (09:18)
[2020-01-01] MEDS: ASPirin 81 mg TAB PO SCH (09:19)
[2020-01-01] MEDS: PEGANONE PO SCH (09:21)
[2020-01-01] MEDS: NITROGLYCERIN 0.2MG/HR TOPICAL PATCH TD SCH (09:21)
[2020-01-01] MEDS: BICTEGRAVIR PO SCH (09:22)
[2020-01-01] MEDS: [UNRECOGNIZED DRUG - OTHER] PO SCH (09:22)
[2020-01-01] MEDS: EMTRICITABINE PO SCH (09:22)
[2020-01-01] MEDS: TENOFOVIR ALAFENAMIDE PO SCH (09:22)
[2020-01-01] MEDS: ENOXAPARIN SOD 40 MG/0.4 ML SYRINGE SC SCH ×2 (09:23→09:38)
[2020-01-01] MEDS: FOLIC ACID 1 MG TAB PO SCH (09:23)
[2020-01-01] MEDS: FAMOTIDINE (10MG/ML) 2ML VL IV SCH (09:23)
[2020-01-01 13:00] VITALS: BP 167/58
[2020-01-01] MEDS: traMADol HCL 50 MG TAB PO PRN ×2 (13:22→22:30)
[2020-01-01] MEDS: metroNIDAZOLE 500 MG TAB PO SCH ×2 (14:13→21:22)
--- NOTE | 2020-01-01 14:23 | NUR ---
Nutrition Followup Notes Pt wt is 73.2 kg Pt was sleeping with no relatives at bedside when rounded this morning. Pt is advanced to a Mechanical Soft diet, appetite is fair aeb ave 67% PO intake x3 meals per RN doc. Pt is with diarrhea per RN doc. Est Energy needs: 2343-8623 kcals (20-23 kcal/kgBW) Est Protein needs: 72-80 gms/day (1.0-1.1 gm/kgBW) Will continue to monitor and reassess prn. LABS: BUN 23 H, Cr 1.03 H, Gluc 145 H, Ca 8.1 L, Alb 2.9 L, Triglycerides 174 H GI: Pt had 5 BM on 12/31 per RN doc BS: 18 mod risk. Refer to wound assessment report for full details. PES: 1) Increased nutrient needs r/t pt medical condition aeb pt with a Clear Liquid diet 2) Altered nutrition related lab values r/t pt current/chronic medical condition aeb hyperglycemia, hypocalcemia, mod hypoalbuminemia, dyslipidemia Comments Will continue to monitor PO status, skin status, pertinent labs and weight trends. Will f/u in 3-5 days. 1) Continue to carefully monitor pt PO intake to meet at least 75% of meals 2) Continue current plan of care
--- NOTE | 2020-01-01 14:52 | NUR ---
RECEIVED PHONE CALL FROM PATIENTS GRANDDAUGHTER STANTON WHO IS PATIENT CAREGIVER PER STANTON SHE IS UNABLE TO TAKE CARE OF PATIENT DUE TO SHE HAS SMALL CHILDREN THAT ARE DOING DISTANT LEARNING AND DOES NOT HAVE THE TIME TO HELP TAKE CARE OF HER GRANDMOTHER. PER STANTON SHE THINKS ITS BEST THAT GRANDMOTHER GOES TO SNF FOR REHAB. PER STANTON SHE SPOKE WITH DOCTOR CRESPO REGARDING PLACEMENT FOR PATIENT.
[2020-01-01 17:00] VITALS: BP 133/53
--- NOTE | 2020-01-01 19:30 | NUR ---
Opening Shift Note Assumed care of patient, awake and alert. No S/S of distress/SOB or pain. Instructed on POC and to call for assist PRN, will continue to monitor for changes Q1hr and PRN. Side rails up x2. Bed locked in lowest position. Call light within reach.
[2020-01-01] MEDS: KETOROLAC TROMETH 30 MG/ML 1ML VIAL IM PRN (21:15)
[2020-01-01] MEDS: ATORVASTATIN 20 MG TAB PO SCH (21:23)
[2020-01-01] MEDS: FLORASTOR (S. BOULARDII) 250 MG CAP PO SCH (21:23)
[2020-01-01 22:00] VITALS: BP 126/55
[2020-01-02] MEDS: SOD CHL 0.9%/ KCL 40MEQ 1,000 ML IV SCH ×2 (00:52→09:34)
[2020-01-02] MEDS: VANCOMYCIN HCL 125MG/5ML ORAL SOL PO SCH ×4 (00:52→18:38)
[2020-01-02] MEDS: traMADol HCL 50 MG TAB PO PRN (02:50)
[2020-01-02] MEDS: metroNIDAZOLE 500 MG TAB PO SCH ×2 (05:44→12:59)
--- NOTE | 2020-01-02 07:00 | NUR ---
Dr. Amado Called Updated on patients status. ordered STAT KUB, Re-consult GI.
--- NOTE | 2020-01-02 07:45 | NUR ---
Opening Shift Note Assumed care of patient, awake and alert. No S/S of distress/SOB or pain. Instructed on POC and to call for assist PRN, will continue to monitor for changes Q1hr and PRN. Bed locked in lowest position with two side rails up and call light in reach.
[2020-01-02 08:00] VITALS: BP_SYST 131; BP_SYST 134; BP_DIAS 54
[2020-01-02] MEDS: cefTRIAXone 1GM/50ML D5W 50 ML IV SCH (09:00)
[2020-01-02] MEDS: FAMOTIDINE (10MG/ML) 2ML VL IV SCH (09:29)
[2020-01-02] MEDS: [UNRECOGNIZED DRUG - OTHER] PO SCH (09:30)
[2020-01-02] MEDS: TENOFOVIR ALAFENAMIDE PO SCH (09:30)
[2020-01-02] MEDS: FOLIC ACID 1 MG TAB PO SCH (09:30)
[2020-01-02] MEDS: EMTRICITABINE PO SCH (09:30)
[2020-01-02] MEDS: ASPirin 81 mg TAB PO SCH (09:30)
[2020-01-02] MEDS: BICTEGRAVIR PO SCH (09:30)
[2020-01-02] MEDS: PEGANONE PO SCH (09:31)
[2020-01-02] MEDS: FLORASTOR (S. BOULARDII) 250 MG CAP PO SCH (09:32)
[2020-01-02] MEDS: ENOXAPARIN SOD 40 MG/0.4 ML SYRINGE SC SCH (09:32)
[2020-01-02] MEDS: CYANOCOBALAMIN (B-12) 1000 MCG/1 ML VIAL SUBCUT SCH (09:33)
[2020-01-02] MEDS: NITROGLYCERIN 0.2MG/HR TOPICAL PATCH TD SCH (09:34)
--- NOTE | 2020-01-02 15:10 | NUR ---
PER CUBA IN CASE MANAGEMENT PATIENT IS GOING TO [facility] TO BED 512 ACCEPTING PHYSICIAN IS BRET CRESPO PHONE NUMBER FOR REPORT IS [phone] [facility] TO PICK PATIENT UP AT 8:30 PM 01/02/20 [facility].
--- NOTE | 2020-01-02 15:14 | NUR ---
D/C Planning Placed follow up called to Courtney with [facility] advising her patient will be discharging to facility today. Per Courtney patient will be going to room 512 accepting , Dr. Hunter. Transportation has been arranged with [employer] via gurney and oxygen. Informed ADRYAN Alonzo.
--- NOTE | 2020-01-02 15:16 | NUR ---
ETA for transport 8pm
[2020-01-02 16:41] VITALS: BP 127/53
--- NOTE | 2020-01-02 18:53 | NUR ---
CALLED AND SPOKE TO GRANDDAUGHTER STANTON AND INFORMED OF TRANSFER NUMBER AND BED GIVEN
--- NOTE | 2020-01-02 19:30 | NUR ---
assumed care, pt. awake, waiting for transport, [facility], no c/o pain, no sob.
--- NOTE | 2020-01-02 19:37 | NUR ---
REPORT GIVEN TO PERLITA CORNELIUS AT [facility]
[2020-01-02 21:20] VITALS: BP 129/60
--- NOTE | 2020-01-02 21:20 | NUR ---
pt. d/c to [facility], pt. in stable condition, d/c papers given, iv and manager membership removed by wesly Alonzo.
== END 2020-01-02 21:20 | DRG 371 ==
LOC: ER 10:40 → EDBD 10:40 → TELE-WESTW 10:41 → ER 19:50
PROVIDERS: ADMIT Internal Medicine; ATTEND Internal Medicine
DX: A04.72 Enterocolitis due to Clostridium difficile, not specified as recurrent (principal); D66 Hereditary factor VIII deficiency; B20 Human immunodeficiency virus [HIV] disease; B19.10 Unspecified viral hepatitis B without hepatic coma; M48.54XA Collapsed vertebra, not elsewhere classified, thoracic region, initial encounter for fracture; F03.90 Unspecified dementia, unspecified severity, without behavioral disturbance, psychotic disturbance, mood disturbance, and anxiety; R62.7 Adult failure to thrive; B19.20 Unspecified viral hepatitis C without hepatic coma; D64.9 Anemia, unspecified; E86.0 Dehydration; K57.90 Diverticulosis of intestine, part unspecified, without perforation or abscess without bleeding; E87.6 Hypokalemia; M81.0 Age-related osteoporosis without current pathological fracture; R56.9 Unspecified convulsions; Z90.710 Acquired absence of both cervix and uterus; D72.829 Elevated white blood cell count, unspecified; Z91.14 Patient's other noncompliance with medication regimen; I34.1 Nonrheumatic mitral (valve) prolapse; K75.89 Other specified inflammatory liver diseases; Z83.2 Family history of diseases of the blood and blood-forming organs and certain disorders involving the immune mechanism; Z20.828 Contact with and (suspected) exposure to other viral communicable diseases; Z90.49 Acquired absence of other specified parts of digestive tract; Z88.6 Allergy status to analgesic agent; Z88.5 Allergy status to narcotic agent; Z88.8 Allergy status to other drugs, medicaments and biological substances
CPT/HCPCS: 36415; 70450; 71045; 74018; 74176; 80053; 80061; 80307; 81001; 82140; 82150; 82270; 82550; 82607; 82746; 83036; 83690; 83735; 84443; 84484; 85025; 85652; 86141; 87040; 87086; 87426; 87493; 93005; 93306; 96365; 96375; G0378; J0696; J1885; J2405; J3490

== ENCOUNTER 2022-01-07 10:22 | Emergency (ER) | payer MEDICARE, MEDICAID ==
[~2022-01-07] VITALS: Ht 172.7 cm; Wt 63.6 kg
[~2022-01-07 10:22] MED LIST changes: +BICT1TAB PO; -EFAV600T PO; -LUBI24CA6 PO; -OXYC80TA PO; -PROC10TA2 PO; -TENO300T PO; -[UNRECOGNIZED DRUG - CODE] PO
[2022-01-07 11:47] LABS: Basophils # (auto) 0 10 ^3/uL (0-0.2); Basophils % (auto) 0.3 % (0.0-2.0); Eosinophils # (auto) 0.1 10 ^3/uL (0-0.8); Hematocrit 47.7 % (36.0-46.0); Hemoglobin 15.6 g/dL (12.2-16.2); Lymphocytes % (auto) 16.1 % (10.0-50.0); Mean Corpuscular Hemoglobin 30.9 pg (28.0-32.0); Mean Corpuscular Hgb Conc. 32.8 g/dL (32.0-36.0); Mean Corpuscular Volume 94.4 fL (80.0-100.0); Monocytes # (auto) 0.5 10 ^3/uL (0-1.3); Monocytes % (auto) 7.1 % (0.0-12.0); Neutrophils # (auto) 4.8 10 ^3/uL (1.6-8.6); Neutrophils % (auto) 75.5 % (37.0-80.0); Nucleated Red Blood Cells % 0.2 %; Red Blood Cells 5.06 10^6/uL (4.0-5.20); White Blood Cell 6.3 10^3/uL (4.4-10.8)
[2022-01-07 12:00] LABS: Red Cell Distribution Width 20.5 % (11.8-14.3)
[2022-01-07 12:10] LABS: Albumin 2.7 g/dL (3.4-5.0); Anion Gap 14 (5-15); Aspartate Aminotransferase 20 U/L (15-37); Blood Alcohol < 3.0 mg/dL (0-5); Blood Urea Nitrogen 18 mg/dL (7-18); Calcium 8.6 mg/dL (8.5-10.1); Carbon Dioxide 19 mmol/L (21-32); Chloride 102 mmol/L (98-107); Glucose 171 mg/dL (74-106); Potassium 3.1 mmol/L (3.5-5.1); Sodium 135 mmol/L (136-145)
[2022-01-07 12:12] LABS: Alanine Aminotransferase 23 U/L (13-56); Alkaline Phosphatase 106 U/L (45-117); BUN/Creatinine Ratio 15.8; Bilirubin, Total 1.1 mg/dL (0.2-1.0); GFR African American 59 mL/min; GFR Non-African American 49 mL/min
[2022-01-08 12:39] VITALS: BP 128/68
== END 2022-01-08 18:16 | disposition home or self-care (01) ==
LOC: EDBD 10:22 → EDUNIT# 10:22 → ER 10:29
DX: F03.90 Unspecified dementia, unspecified severity, without behavioral disturbance, psychotic disturbance, mood disturbance, and anxiety (principal); R41.82 Altered mental status, unspecified; I10 Essential (primary) hypertension; Z88.6 Allergy status to analgesic agent; Z88.8 Allergy status to other drugs, medicaments and biological substances; Z20.822 Contact with and (suspected) exposure to COVID-19
CPT/HCPCS: 36415; 70450; 72125; 73502; 80053; 80320; 82550; 83880; 84484; 85025; 93005

== ENCOUNTER 2025-01-30 18:37 | Inpatient (IN) | payer MEDICARE, MEDICAID ==
[~2025-01-30] VITALS: Ht 170.2 cm; Wt 51.5 kg
--- NOTE | 2025-01-30 18:49 | ED.PDOC ---
SOB-HPI HPI Comments 84-year-old female who came to ER via EMS for shortness a breath. Per EMS, patient is picked up at home, and has a history of dementia and is nonverbal. Also has a history of hypertension and HIV. Was said to be eating pizza earlier, started choking, and became short of breath. Upon arrival the paramedics, patient was cyanotic, and was saturating 69% on room air. Patient was placed on 15 L/min, and saturation improved to 89%. Patient currently in hospice care for dementia. EMS did not arrive with a DNR other than verbal and therefore, full intervention will be utilized. 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 Family History Family History: Unobtainable Social History Smoker: Unobtainable Alcohol: Unobtainable Drugs: Unobtainable Lives In: Home Constitutional: denies: chills, diaphoresis, fatigue, fever, malaise, sweats, weakness, others EENTM: denies: blurred vision, double vision, ear bleeding, ear discharge, ear drainage, ear pain, ear ringing, eye pain, eye redness, hearing loss, mouth pain, mouth swelling, nasal discharge, nose bleeding, nose congestion, nose pain, photophobia, tearing, throat pain, throat swelling, voice changes, others Respiratory: reports: cough, SOB at rest, shortness of breath; denies: hemoptysis, orthopnea, SOB with excertion, stridor, wheezing, others Cardiovascular: denies: chest pain, dizzy spells, diaphoresis, Dyspnea on exertion, edema, irregular heart beat, left arm pain, lightheadedness, palpitations, PND, syncope, others Gastrointestinal: denies: abdomen distended, abdominal pain, blood streaked bowels, constipated, diarrhea, dysphagia, difficulty swallowing, hematemesis, melena, nausea, poor appetite, poor fluid intake, rectal bleeding, rectal pain, vomiting, others Genitourinary: denies: abnormal vagina bleeding, burning, dyspareunia, dysuria, flank pain, frequency, hematuria, incontinence, pain, , vagina discharg e, urgency, others Neurological: denies: dizziness, fainting, headache, left sided numbness, left sided weakness, numbness, paresthesia, pre-existing deficit, right sided numbness, right sided weakness, seizure, speech problems, tingling, tremors, weakness, others Musculoskeletal: denies: back pain, gout, joint pain, joint swelling, muscle pain, muscle stiffness, neck pain, others Integumetry: denies: bruises, change in color, change in hair/nails, dryness, laceration, lesions, lumps, rash, wounds, others Allergic/Immunocompromised: denies: Difficulty Healing, Frequent Infections, Hives, Itching, others Hematologic/Lymphatic: denies: anemia, blood clots, easy bleeding, easy bruising, swollen glands, others Endocrine: denies: excessive hunger, excessive sweating, excessive thirst, excessive urination, flushing, intolerance to cold, intolerance to heat, unexplained weight gain, unexplained weight loss, others Psychiatric: denies: anxiety, bipolar disorder, depression, hopeless, panic d isorder, schizophrenia, sleepless, suicidal, others Unable to Obtain due to: Dementia, Other (Patient is nonverbal) Physical Exam General Appearance: Moderate Distress (Moderate distress due to shortness a breath concerns.), Normal HEENT: Pharynx Normal, TMs Normal Neck: Normal Inspection Respiratory: Other (Shallow respirations appreciated. Diffuse rhonchi throughout.) Cardiovascular: No Edema, No JVD, No Murmur, No Gallop, Normal Peripheral Pulses, Regular Rate/Rhythm Breast Exam: Deferred Gastrointestinal: No Pulsatile Mass, Normal Bowel Sounds, Soft Genitalia: Deferred Pelvic: Deferred Rectal: Deferred Extremities: No pedal edema Musculoskeletal : Apperance: Normal Neurologic: Depressed Affect, Motor Weakness Cerebellar Function: NOT DONE Reflexes: NOT DONE Skin: Dry, Normal Color, Warm Lymphatic: No Adenopathy Was a procedure done? Was a procedure done?: No Differential Dx Differential Diagnosis: Bronchitis, Pneumonia, Respiratory Distress, Other (Aspiration pneumonia, sepsis, electrolyte abnormality, acute coronary syndrome, acute respiratory failure) X-Ray, Labs, Meds, VS Vital Signs Date Time Temp Pulse Resp B/P (MAP) Pulse Ox O2 Delivery O2 Flow Rate FiO2 01/30/25 22:00 94 20 117/60 (79) 98 01/30/25 19:48 Non-Rebreather 15 N/A 01/30/25 19:48 97.1 79 20 165/69 (101) 94 97.1 01/30/25 18:45 81 01/30/25 18:37 97.4 85 20 180/69 89 97.4 Lab Test 01/30/25 22:19 01/30/25 19:50 01/30/25 18:54 Range/Units Urine Color Colorless Yellow Urine Clarity Turbid H Clear Urine pH 6.0 5.0-9.0 Urine Specific [place] 1.014 1.001-1.035 Urine Protein Trace H Negative Urine Ketones Negative Negative Urine Blood Negative Negative /uL Urine Nitrite Negative Negative Urine Bilirubin Negative Negative Urine Urobilinogen Normal Negative mg/dL Urine Leukocyte Esterase 3+ Negative /uL Urine RBC 1 0 - 4 /hpf Urine WBC Clumps Present None Seen /hpf Urine Microscopic WBC 96 H 0-5 /HPF Urine Squamous Epithelial Cells Few <5 /hpf Urine Bacteria Mod H None Seen /hpf Urine Glucose Normal Normal mg/dL Troponin I High Sensitivity < 3 L < 3 L </=34 ng/L White Blood Count 5.3 4.4-10.8 10^3/uL Red Blood Count 4.55 4.0-5.20 10^6/uL Hemoglobin 11.5 L 12.2-16.2 g/dL Hematocrit 37.1 36.0-46.0 % Mean Corpuscular Volume 81.5 80.0-100.0 fL Mean Corpuscular Hemoglobin 25.2 L 28.0-32.0 pg Mean Corpuscular Hemoglobin Concent 31.0 L 32.0-36.0 g/dL Red Cell Distribution Width 18.9 H 11.8-14.3 % Platelet Count 222 140-450 10^3/uL Mean Platelet Volume 8.1 6.9-10.8 fL Neutrophils (%) (Auto) 91.8 H 37.0-80.0 % Lymphocytes (%) (Auto) 3.5 L 10.0-50.0 % Monocytes (%) (Auto) 3.4 0.0-12.0 % Eosinophils (%) (Auto) 0.8 0.0-7.0 % Basophils (%) (Auto) 0.5 0.0-2.0 % Neutrophils # (Auto) 4.8 1.6-8.6 10 ^3/uL Lymphocytes # (Auto) 0.2 L 0.4-5.4 10 ^3/uL Monocytes # (Auto) 0.2 0-1.3 10 ^3/uL Eosinophils # (Auto) 0 0-0.8 10 ^3/uL Basophils # (Auto) 0 0-0.2 10 ^3/uL Nucleated Red Blood Cells 0.4 % Prothrombin Time 10.0 9.3-11.8 sec Prothrombin Time INR 0.94 0.9-1.15 Activated Partial Thromboplast Time 32.9 24.5-34.5 SEC D-Dimer, Quantitative 0.94 H 0.0-0.49 mg/L FEU Sodium Level 137 136-145 mmol/L Potassium Level 4.3 3.5-5.1 mmol/L Chloride Level 104 98-107 mmol/L Carbon Dioxide Level 24 20-31 mmol/L Anion Gap 9 5-15 Blood Urea Nitrogen 25 H 9-23 mg/dL Creatinine 0.77 0.550-1.02 mg/dL Glomerular Filtration Rate Calc 76 >90 mL/min BUN/Creatinine Ratio 32.5 H 10.0-20.0 Serum Glucose 118 H 74-106 mg/dL Calcium Level 8.2 L 8.7-10.4 mg/dL Total Bilirubin 0.4 0.2-1.0 mg/dL Aspartate Amino Transferase (AST) 17 13-40 U/L Alanine Aminotransferase (ALT) 11 7-40 U/L Alkaline Phosphatase 92 46-116 U/L B-Type Natriuretic Peptide 81.90 0-100 pg/mL Total Protein 6.7 5.7-8.2 g/dL Albumin 2.8 L 3.2-4.8 g/dL EXAM: XY CHEST PORTABLE HISTORY: SOB TECHNIQUE: 1 view of the chest COMPARISON: None FINDINGS/IMPRESSION: LUNGS: No pleural effusion, consolidation, or pneumothorax . Low lung volumes, which cause crowding of the bronchovascular markings. MEDIASTINUM: Unremarkable BONES: No acute osseous abnormality. Nondisplaced to minimally displaced left posterolateral to lateral lower rib fractures OTHER: None X-Ray, Labs, Meds, VS Comment All studies performed in the ED were evaluated by me personally. Serum studies revealed a hypocalcemic state as well as an elevated D-dimer. Urinalysis confirmed a UTI. EKG showed a sinus arrhythmia with a rate of 81. Borderline T-wave abnormalities in the diffuse leads were noted. AK interval 161 and QT interval 401. Due to the patient's continued 15 L on non-rebreather, indicative of respiratory failure, patient will be admitted for continued evaluation. IV antibiotics has been started to address her urinary tract concerns as well as calcium gluconate to address her hypocalcemia concerns. Time of 1ST Reevaluation: 23:22 Reevaluation 1ST: Unchanged Consultation: PCP Patient Education/Counseling: Diagnosis, Treatment, Other (Patient has dementia) Family Education/Counseling: Diagnosis, Treatment, No Family Present SEPSIS Sepsis Screen Recent Procedure: No On Antibiotic Therapy: No Respiratory Rate >20: No Heart Rate >90: No Temp<36 C (96.8 F) or >38.3 C: No SBP <90 or MAP <65 mmHG: No New Acute Mental Status Change: No Is the patient on CPAP, BIPAP,: No Physician Orders Chest Portable (01/30/25 18:43) Heplock Iv (01/30/25 18:43) Electrocardigram (01/30/25 19:43) Electrocardigram (01/30/25 21:43) Insert Radford Catheter QSHIFT (01/30/25 20:44) Vital Signs Date Time Temp Pulse Resp B/P (MAP) Pulse Ox O2 Delivery O2 Flow Rate FiO2 01/30/25 22:00 94 20 117/60 (79) 98 01/30/25 19:48 Non-Rebreather 15 N/A 01/30/25 19:48 97.1 79 20 165/69 (101) 94 97.1 01/30/25 18:45 81 01/30/25 18:37 97.4 85 20 180/69 89 97.4 Laboratory Tests Test 01/30/25 18:54 White Blood Count 5.3 10^3/uL (4.4-10.8) Departure 1 Departure Time of Disposition: 23:23 Impression: Primary Impression: Acute respiratory failure Additional Impressions: Urinary (tract) obstruction Hypocalcemia Elevated d-dimer Disposition: ADMITTED INPATIENT Condition: Fair Discharged With: Self Critical Care Note Critical Care Time?: Yes (45 min-critical care time only) Critical care comment: Due to the high probability of a clinically significant and possibly life- threatening deterioration, the patient required my highest level of preparedness to intervene emergently and therefore, I personally provided 45 minutes of critical care time exclusive of time spent on separate billable procedures. This critical care time includes, but is not limited to, obtaining additional history, re-examination of the patient, evaluation of pulse oximetry, ordering and reviewing of studies, arranging urgent treatment plans with the development of a longer-term management plan as well as evaluation of patient's response to treatment, frequent reassessments and discussions with other providers. Stability Stability form required: No Heart Score Heart Score: Heart Score Response (Comments) Value History Slightly Suspicious 0 EKG Normal 0 Age >65 2 Risk Factors >3 or Hx ASHD 2 Troponin Normal limit 0 Total 4 I personally scribed for SESAR DHILLON PAC ([email or web address]) on 01/30/25 at 18:49. Electronically submitted by Paramjit Goel ([email or web address]). I personally scribed for SESAR DHILLON PAC ([email or web address]) on 01/30/25 at 21:37. Electronically submitted by Paramjit Goel ([email or web address]). SESAR DHILLON PAC Jan 30, 2025 18:49
--- NOTE | 2025-01-30 19:05 | ECG ---
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
[2025-01-30 19:08] LABS: Hematocrit 37.1 % (36.0-46.0); Hemoglobin 11.5 g/dL (12.2-16.2); Mean Corpuscular Hemoglobin 25.2 pg (28.0-32.0); Mean Corpuscular Volume 81.5 fL (80.0-100.0); Nucleated Red Blood Cells % 0.4 %
[2025-01-30 19:23] LABS: INR 0.94 (0.9-1.15); Partial Thromboplastin Time 32.9 SEC (24.5-34.5); Prothrombin Time 10.0 sec (9.3-11.8)
[2025-01-30 19:25] LABS: Alanine Aminotransferase 11 U/L (7-40); Alkaline Phosphatase 92 U/L (46-116); Anion Gap 9 (5-15); BUN/Creatinine Ratio 32.5 (10.0-20.0); Bilirubin, Total 0.4 mg/dL (0.2-1.0); Carbon Dioxide 24 mmol/L (20-31); Chloride 104 mmol/L (98-107); Potassium 4.3 mmol/L (3.5-5.1); Sodium 137 mmol/L (136-145); Total Protein 6.7 g/dL (5.7-8.2)
[2025-01-30 19:34] LABS: Albumin 2.8 g/dL (3.2-4.8); Blood Urea Nitrogen 25 mg/dL (9-23); Calcium 8.2 mg/dL (8.7-10.4); Glucose 118 mg/dL (74-106)
--- NOTE | 2025-01-30 20:25 | DVH ---
EXAM: XY CHEST PORTABLE HISTORY: SOB TECHNIQUE: 1 view of the chest COMPARISON: None FINDINGS/IMPRESSION: LUNGS: No pleural effusion, consolidation, or pneumothorax . Low lung volumes, which cause crowding o f the bronchovascular markings. MEDIASTINUM: Unremarkable BONES: No acute osseous abnormality. Nondisplaced to minimally displaced left posterolateral to later al lower rib fractures OTHER: None
[2025-01-30 22:56] LABS: Urine Protein, UAD TRACE (Negative); Urine WBC Clumps PRESENT /hpf (None Seen)
--- NOTE | 2025-01-30 23:51 | DVHHPRES ---
History of Present Illness Resident Creating Document: SHAKIRA DEAL RESIDENT History of Present Illness Brianda Eckert is a 84year old female patient who presents to ED brought by EMS due to sudden dyspnea after eating a meal. Patient is nonverbal due to history of dementia and is on home hospice. Tried to call daughter on admission but did not pick up operator the phone, obtain information from EMR and nursing staff. Patient was eating pizza started choking and then became short of breath, upon arrival EMS patient was saturating 69% in room air and was cyanotic, requiring non-rebreather mask at 15 L/min Past medical history: Hypertension, Dementia, HIV, hepatitis-C, seizures Surgical history: Unobtainable Family history: Unobtainable Social history: Lives with family in home hospice (daughter who is the caregiver). Unobtainable tobacco, alcohol and other drug abuse history Allergies: Codeine, hydromorphone, melatonin, midazolam, morphine Home medication: Lisinopril 2.5 mg p.o. b.i.d., omeprazole 20 mg p.o. b.i.d., Peganone, Biktarvy one tablet p.o. daily Patient seen and examined at bedside. Patient is nonverbal, could not express any complaints. Currently on non-rebreather mask at 15 L/min. Per nursing staff who spoke with daughter, patient is a DNR/DNI Past Medical History Per HPI Past Surgical History Per HPI Family History Per HPI Past Social History Per HPI Review of Systems Review of Systems Per HPI Allergies: Coded Allergies: Codeine (Verified Allergy, Unknown, 09/16/17) Hydromorphone (Verified Allergy, Unknown, 09/16/17) Melatonin (Verified Allergy, Unknown, 09/17/17) Midazolam (Verified Allergy, Unknown, 09/16/17) Morphine (Verified Allergy, Unknown, 09/16/17) Exam Vital Signs Vital Signs Date Time Temp Pulse Resp B/P (MAP) Pulse Ox O2 Delivery O2 Flow Rate FiO2 01/30/25 22:00 94 20 117/60 (79) 98 01/30/25 19:48 Non-Rebreather 15 N/A 01/30/25 19:48 97.1 97.1 Exam Patient lying in bed, in no acute distress General: Goldberg, non-verbal, afebrile, mucosae are moist Cardiovascular: Normal S1 and S2. No murmurs, gallops or rubs Respiratory: Tachypnea, regular ventilation mechanics. Bilateral long rhonchus predominantly on right base. On non-rebreather mask 15 L/min Abdomen: Soft, nontender, no organomegaly, normal bowel sounds MSK/skin: Mobilizes 4 limbs. Skin is dry and warm. Grade 1-2 decubitus sacral ulcer Neurological: Orientation cannot be assessed, patient is non verbal. No apparent motor no sensitive deficits. Pupils are isocoric and reactive Labs/Xrays Labs Test 01/30/25 22:19 01/30/25 19:50 01/30/25 18:54 Range/Units Urine Color Colorless Yellow Urine Clarity Turbid H Clear Urine pH 6.0 5.0-9.0 Urine Specific [place] 1.014 1.001-1.035 Urine Protein Trace H Negative Urine Ketones Negative Negative Urine Blood Negative Negative /uL Urine Nitrite Negative Negative Urine Bilirubin Negative Negative Urine Urobilinogen Normal Negative mg/dL Urine Leukocyte Esterase 3+ Negative /uL Urine RBC 1 0 - 4 /hpf Urine WBC Clumps Present None Seen /hpf Urine Microscopic WBC 96 H 0-5 /HPF Urine Squamous Epithelial Cells Few <5 /hpf Urine Bacteria Mod H None Seen /hpf Urine Glucose Normal Normal mg/dL Troponin I High Sensitivity < 3 L </=34 ng/L White Blood Count 5.3 4.4-10.8 10^3/uL Red Blood Count 4.55 4.0-5.20 10^6/uL Hemoglobin 11.5 L 12.2-16.2 g/dL Hematocrit 37.1 36.0-46.0 % Mean Corpuscular Volume 81.5 80.0-100.0 fL Mean Corpuscular Hemoglobin 25.2 L 28.0-32.0 pg Mean Corpuscular Hemoglobin Concent 31.0 L 32.0-36.0 g/dL Red Cell Distribution Width 18.9 H 11.8-14.3 % Platelet Count 222 140-450 10^3/uL Mean Platelet Volume 8.1 6.9-10.8 fL Neutrophils (%) (Auto) 91.8 H 37.0-80.0 % Lymphocytes (%) (Auto) 3.5 L 10.0-50.0 % Monocytes (%) (Auto) 3.4 0.0-12.0 % Eosinophils (%) (Auto) 0.8 0.0-7.0 % Basophils (%) (Auto) 0.5 0.0-2.0 % Neutrophils # (Auto) 4.8 1.6-8.6 10 ^3/uL Lymphocytes # (Auto) 0.2 L 0.4-5.4 10 ^3/uL Monocytes # (Auto) 0.2 0-1.3 10 ^3/uL Eosinophils # (Auto) 0 0-0.8 10 ^3/uL Basophils # (Auto) 0 0-0.2 10 ^3/uL Nucleated Red Blood Cells 0.4 % Prothrombin Time 10.0 9.3-11.8 sec Prothrombin Time INR 0.94 0.9-1.15 Activated Partial Thromboplast Time 32.9 24.5-34.5 SEC D-Dimer, Quantitative 0.94 H 0.0-0.49 mg/L FEU Sodium Level 137 136-145 mmol/L Potassium Level 4.3 3.5-5.1 mmol/L Chloride Level 104 98-107 mmol/L Carbon Dioxide Level 24 20-31 mmol/L Anion Gap 9 5-15 Blood Urea Nitrogen 25 H 9-23 mg/dL Creatinine 0.77 0.550-1.02 mg/dL Glomerular Filtration Rate Calc 76 >90 mL/min BUN/Creatinine Ratio 32.5 H 10.0-20.0 Serum Glucose 118 H 74-106 mg/dL Calcium Level 8.2 L 8.7-10.4 mg/dL Total Bilirubin 0.4 0.2-1.0 mg/dL Aspartate Amino Transferase (AST) 17 13-40 U/L Alanine Aminotransferase (ALT) 11 7-40 U/L Alkaline Phosphatase 92 46-116 U/L B-Type Natriuretic Peptide 81.90 0-100 pg/mL Total Protein 6.7 5.7-8.2 g/dL Albumin 2.8 L 3.2-4.8 g/dL SEPSIS Sepsis Screen Date sepsis recognized/suspect: Jan 30, 2025 Time Sepsis recognized/suspect: 1947 Recent Procedure: No On Antibiotic Therapy: No Respiratory Rate >20: No Heart Rate >90: No Temp<36 C (96.8 F) or >38.3 C: No SBP <90 or MAP <65 mmHG: No New Acute Mental Status Change: No Is the patient on CPAP, BIPAP,: No Physician Orders Chest Portable (01/30/25 18:43) Heplock Iv (01/30/25 18:43) Electrocardigram (01/30/25 19:43) Electrocardigram (01/30/25 21:43) Insert [place] Catheter QSHIFT (01/30/25 20:44) Ceftriaxone 1gm/50ml (Rocephin) (01/30/25 23:30) Calcium Gluc 1,000mg/50ml-Ns (01/30/25 23:30) Vital Signs Date Time Temp Pulse Resp B/P (MAP) Pulse Ox O2 Delivery O2 Flow Rate FiO2 01/30/25 22:00 94 20 117/60 (79) 98 01/30/25 19:48 Non-Rebreather 15 N/A 01/30/25 19:48 97.1 79 20 165/69 (101) 94 97.1 01/30/25 18:45 81 01/30/25 18:37 97.4 85 20 180/69 89 97.4 Laboratory Tests Test 01/30/25 18:54 White Blood Count 5.3 10^3/uL (4.4-10.8) Assessment/Plan Assessment/Plan Acute respiratory failure due to aspiration pneumonia Probable aspiration pneumonia Rule out PE Currently on oxygen therapy with non-rebreather mask/15 L/min. Patient is DNR/DNI Currently on bronchodilators, empiric IV antibiotics and IV steroids Ordered angio CT to rule out PE, pending Patient currently NPO Sepsis secondary to aspiration pneumonia vs UTI Probable aspiration pneumonia Complicated UTI Decubitus sacral wound-present on admission Chronic HIV infection - on anti-retroviral medication History of hepatitis C Ordered knapp cultures (blood, urine, sputum and wound) Currently under empiric IV antibiotic (ceftriaxone and vancomycin) Continue Biktarvy Ordered wound counseled Dementia Bed-bound History of seizures Ruled out DVT Completed lower limb extremity ultrasound which ruled out DVT (could not visualize all veins due to positioning the patient) Hypertension GERD Continue lisinopril 2.5 mg p.o. b.i.d. On IV pantoprazole Goals of care obtain from nurse staff call daughter: DNR/DNI. Daughter will bring paperwork on a.m. of 01/31/[address] Riddle, and nurses: Currently under empiric IV antibiotic, on oxygen therapy with non-rebreather mask. Patient has poor prognosis. Critical care time spent including discussion with nursing, excluding procedure: 73 minutes Plan discussed with: Patient, Daughter (Did not answer phone call), Other (Nurses) Date of Service: Jan 30, 2025 Billing Provider: BRET RIDDLE MD Common Visit Codes: [id number] INP/OBS CARE (HIGH) Secondary Visit Codes: 34464-[id number] CARE PLAN 30 MINUTES SHAKIRA DEAL RESIDENT Jan 30, 2025 23:51
[2025-01-31] VITALS (17 sets, daily range): BP systolic 94–141; BP diastolic 47–68; PULSE 69–118; RESP 12–22; TEMP 97.1–99.1; O2SAT 90–100
[2025-01-31] MEDS ORDERED: MORPHINE SULFATE INJ 2 MG/ml SYRG IV PRN
[2025-01-31] MEDS ORDERED: NITROGLYCERIN 0.4 MG SL TAB SL PRN
[2025-01-31 00:22] LABS: Magnesium 2.2 mg/dL (1.6-2.6)
--- NOTE | 2025-01-31 00:33 | DVH ---
Bilateral lower extremity venous duplex Clinical History: Silateral leg swelling Comparison: None Technique: Duplex Doppler evaluation of the deep venous systems of both lower extremities from the common femora l veins to the popliteal veins including color Doppler and spectral/pulsed waveform analysis was perf ormed. Findings: RIGHT SIDE: The femoral vein demonstrates appropriate compressibility and waveform variability. The deep femoral vein demonstrates appropriate compressibility and waveform variability. The popliteal vein demonstrates appropriate compressibility and waveform variability. There is normal compressibility at the tibioperoneal trunk. The right common femoral and saphenous veins and right popliteal trifurcation were not adequately vis ualized. Sagittal color flow was not obtained on the right popliteal vein. LEFT SIDE: The common femoral vein demonstrates appropriate compressibility and waveform variability. There is compressibility/patency of the great saphenous vein at the proximal thigh. The femoral vein demonstrates appropriate compressibility and waveform variability. The deep femoral vein demonstrates appropriate compressibility and waveform variability. The popliteal vein demonstrates appropriate compressibility and waveform variability. There is normal compressibility at the tibioperoneal trunk. Sagittal color flow was not obtained on the Left superficial femoral vein. Impression: 1. No right or left femoropopliteal venous thrombosis. 2. Technically limited exam secondary to patient positioning with nonvisualization of the right commo n femoral and saphenous veins and unsuccessful sagittal color flow evaluation of the right popliteal and left superficial femoral veins. 3. If clinical concern/symptoms persist or worsen, short-interval follow-up study is suggested.
[2025-01-31 00:57] LABS: INR 0.96 (0.9-1.15); Partial Thromboplastin Time 34.3 SEC (24.5-34.5); Prothrombin Time 10.2 sec (9.3-11.8)
[2025-01-31] MEDS: CALCIUM GLUC 1,000mg/50ml-NS 50 ML IV ONE (01:10)
[2025-01-31 02:24] LABS: Hematocrit 37.3 % (36.0-46.0); Hemoglobin 12.2 g/dL (12.2-16.2); Mean Corpuscular Hemoglobin 25.1 pg (28.0-32.0); Mean Corpuscular Volume 76.6 fL (80.0-100.0); Nucleated Red Blood Cells % 0.2 %
[2025-01-31 02:39] LABS: Alanine Aminotransferase < 9 U/L (7-40); Albumin 3.1 g/dL (3.2-4.8); Alkaline Phosphatase 96 U/L (46-116); Anion Gap 9 (5-15); BUN/Creatinine Ratio 25.0 (10.0-20.0); Blood Urea Nitrogen 19 mg/dL (9-23); Calcium 9.2 mg/dL (8.7-10.4); Carbon Dioxide 24 mmol/L (20-31); Chloride 103 mmol/L (98-107); Glucose 132 mg/dL (74-106); Potassium 4.5 mmol/L (3.5-5.1); Sodium 136 mmol/L (136-145); Total Protein 7.5 g/dL (5.7-8.2)
[2025-01-31 02:40] LABS: Bilirubin, Total 0.3 mg/dL (0.2-1.0)
[2025-01-31] MEDS ORDERED: VANCOMYCIN PER PHARMACY 0 MG IV SCH (03:15)
[2025-01-31 03:50] LABS: Benzodiazephine Screen, Urine Neg (NEGATIVE)
[2025-01-31 03:51] LABS: Opiate Scree,Urine Pos (NEGATIVE)
[2025-01-31 03:52] LABS: Amphetamine Screen, Urine Neg (NEGATIVE); Barbiturate Scree,Urine Neg (NEGATIVE); Cannabinoid Screen, Urine Neg (NEGATIVE); Cocaine Screen, Urine Neg (NEGATIVE); Phencyclidine Screen, Urine Neg (NEGATIVE)
[2025-01-31] MEDS: VANCOMYCIN 1.25GM/250ML 250 ML IV ONE (05:03)
[2025-01-31] MEDS: LEVALBUTEROL HCL 1.25 MG/3 ML NEB NEB SCH (06:14)
[2025-01-31] MEDS: IPRATROPIUM BROM 0.5 MG/2.5ML INH SOL NEB SCH (06:14)
[2025-01-31 08:27] LABS: Base Excess -2.2 mmol/L (-2.0-3.0)
[2025-01-31] MEDS ORDERED: IOHEXOL 350 MG/ML 100ML IJ ONE (08:36)
--- NOTE | 2025-01-31 09:29 | DVH ---
CLINICAL INFORMATION: Rule out pulmonary embolism. TECHNIQUE: Axial CTA images of the chest were obtained after the uneventful administration of 70 mL o f Omnipaque 350 IV contrast. Coronal and sagittal reformatted images and MIP images were obtained, re viewed, and stored. One or more of the following dose reduction techniques were used: Automated expos ure control. Adjustment of mA and/or kV according to patient size. CTDIvol = 8.1, 14.8, 0.14 mGy DLP = 273.94 mGy COMPARISON: Chest radiograph dated 01/30/2025. FINDINGS: Pulmonary arteries: No central or lobar pulmonary embolism. Evaluation for segmental or subsegmental pulmonary emboli is limited due to respiratory motion artifact. Aorta: No aneurysm or dissection. [id number] atherosclerotic calcification. Cardiac: Heart size is within normal limits. Moderate coronary artery calcification. Mediastinum/tasha: No mass or adenopathy. Lungs: Atelectasis and consolidation in the left lower lobe. Scattered small ground-glass opacities a re seen throughout both lungs, likely infectious or inflammatory in nature. No pneumothorax. No pleur al effusion. 4 mm nodule in the anterior inferior aspect of the right upper lobe (series 3, image 59) . Chest wall: No mass or other abnormality. Upper abdomen: Postsurgical changes of prior cholecystectomy. Small hiatal hernia. No acute or suspic ious findings seen in the upper abdomen. Bones: Multilevel chronic appearing compression deformities are seen, including at the T6, T9, T10, T 11, T12, L1, and L2 vertebral bodies. No acute appearing fracture identified. IMPRESSION: 1. No central or lobar pulmonary embolism. Evaluation for segmental or subsegmental pulmonary emboli is limited due to respiratory motion artifact. 2. Atelectasis and consolidation in the left lower lobe, may be due to pneumonia and/or aspiration. 3. Scattered small ground-glass opacities throughout both lungs, likely infectious or inflammatory in nature. Correlate with clinical findings. 4. Small hiatal hernia. 5. Multilevel chronic appearing compression deformities in the thoracic and upper lumbar spine as mickey cribed above. No acute appearing fracture.
[2025-01-31] MEDS: LISINOPRIL 5 MG TAB PO SCH (10:00)
[2025-01-31] MEDS: Bictegravir-Emtricitabine-Teno (Biktarvy 50-200-25 mg) TABLET PO SCH (10:00)
[2025-01-31] MEDS: ENOXAPARIN SOD 30 MG/0.3 ML SYRINGE SC SCH (10:00)
[2025-01-31] MEDS: PANTOPRAZOLE 40 MG/10 ML VIAL INJ IV SCH (10:49)
[2025-01-31] MEDS: methylPREDNISolone SOD SUCC 40 MG/ML VL IV SCH (10:50)
[2025-01-31] MEDS: LORazepam 0.5 MG TAB PO SCH (13:18)
[2025-01-31] MEDS: HYDROcodone-ACET 10/325MG TAB PO SCH (13:18)
--- NOTE | 2025-01-31 14:23 | DVHPNRES ---
Progress Note Date Seen: Jan 31, 2025 Resident Creating Document: MADHU COOK RESIDENT Medical Necessity Reason Pt with a Central, PICC or Fol: Yes The following are medically ne: Soto Catheter Reason for soto catheter: Strict I&O Subjective Review of Systems The patient has been bed-bound for approximately 3 years due to progressive dementia, which has significantly impacted her daily functioning and self-care abilities. She has a Do Not Intubate (DNI) order in place. Patient reports: No new complaints Objective vital signs Vital Sign Date Time Temp Pulse Resp B/P (MAP) Pulse Ox O2 Delivery O2 Flow Rate FiO2 01/31/25 11: 78 18 99 01/31/25 11:25 Oxymizer 4.0 01/31/25 11:25 N/A 01/31/25 10:00 95/60 01/31/25 09:23 98.6 98.6 Total Intake and Output 01/30/25 01/30/25 01/31/25 15:00 23:00 07:00 Intake Total 200 ml Output Total 450 ml Balance -250 ml medications Current Medications Medications Dose Ordered Sig/Leilani Route Start Time Stop Time Status Last Admin Dose Admin Enoxaparin Sodium 30 mg DAILY SC 01/31/25 10:00 Nitroglycerin 0.4 mg Q5MINP PRN SL 01/31/25 00:00 Ipratropium [place] 0.5 mg Q6HWA [facility] 01/31/25 06:00 01/31/25 11:19 0.5 MG Levalbuterol HCl 0.625 mg Q6HWA [facility] 01/31/25 06:00 01/31/25 11:19 0.625 MG Ceftriaxone Sodium 50 ml @ 100 mls/hr DAILY@09 IV 01/31/25 09:00 01/31/25 09:24 100 MLS/HR Pantoprazole Sodium 40 mg DAILY IV 01/31/25 10:00 01/31/25 10:49 40 MG Methylprednisolone Sodium Succinate 40 mg BID IV 01/31/25 10:00 01/31/25 10:50 40 MG Patient Own Medication 1 tab DAILY PO 01/31/25 10:00 Lisinopril 2.5 mg BID PO 01/31/25 10:00 Vancomycin HCl 0 ml @ 0 mls/hr UD IV 01/31/25 03:15 Vancomycin HCl 250 ml @ 200 mls/hr Q24H IV 02/01/25 08:00 Lorazepam 2 mg Q6H PO 01/31/25 12:00 01/31/25 13:18 2 MG Acetaminophen/ Hydrocodone Bitart 1 tab Q6H PO 01/31/25 12:00 01/31/25 13:18 1 TAB Examination General: Goldberg, non-verbal, afebrile, mucosae are moist Cardiovascular: Normal S1 and S2. No murmurs, gallops or rubs Respiratory: Tachypnea, regular ventilation mechanics. Bilateral long rhonchus predominantly on right base. On non-rebreather mask 15 L/min Abdomen: Soft, nontender, no organomegaly, normal bowel sounds MSK/skin: Mobilizes 4 limbs. Skin is dry and warm. Grade 1-2 decubitus sacral ulcer Neurological: Orientation cannot be assessed, patient is non verbal. No apparent motor no sensitive deficits. Pupils are isocoric and reactive laboratory and microbiology Laboratory Tests 01/31/25 02:05 Test 01/31/25 02:05 Range/Units Serum Glucose 132 H 74-106 mg/dL Labs and/or images reviewed: Labs reviewed by me, Image(s) reviewed by me Problem List/Assessment/Plan Problem List/Assessment/Plan # Sepsis secondary to aspiration pneumonia vs UTI # Acute Hypoxic respiratory failure due to aspiration pneumonia # Aspiration pneumonia # Ruled out PE - Currently on oxygen therapy with non-rebreather mask/15 L/min. - Currently on bronchodilators, empiric IV antibiotics vancomycin and Rocephin - Ordered angio CT -showed no PE but showed atelectasis and consolidation of left lower lobe represents pneumonia along with the scattered ground-glass opacities throughout the lungs - Patient currently NPO - methylprednisolone 40 mg IV b.i.d. # Complicated UTI -Ordered knapp cultures (blood, urine, sputum and wound) - Currently under empiric IV antibiotic (ceftriaxone and vancomycin) # Decubitus sacral wound-present on admission # Chronic HIV infection - on anti-retroviral medication # History of hepatitis C - Ordered knapp cultures (blood, urine, sputum and wound) - Currently under empiric IV antibiotic (ceftriaxone and vancomycin) - Continue Biktarvy - Ordered wound counseled # Dementia # Bed-bound # History of seizures # Ruled out DVT - Completed lower limb extremity ultrasound which ruled out DVT (could not visualize all veins due to positioning the patient) # Hypertension - Continue lisinopril 2.5 mg p.o. b.i.d. # GERD # Hiatal hernia - On IV pantoprazole Goals of care discussed with Grand-daughter for 20 minutes: DNR/DNI. Case discussed with Dr Freedman Plan discussed with: Other (Nurse; granddaughter) My Orders My Orders Orders - MADHU COOK RESIDENT Procedure Category Date Status Time Basic Metabolic Panel LAB 02/01/25 Verified 04:00 Addendum Addendum Addendum I was physically present for the zurita portions of the service provided to patient by THE RESIDENT. I have reviewed the documentation, discussed the case with resident and agree with the resident's documentation except as noted. Also the patient's clinical case was discussed with the patient's nurse. This medical document was created using an electronic medical record system with computerized dictation system. Although this document has been carefully reviewed, there might still be some phonetic and typographical errors. These areas are purely typographical due to imperfections of the software programs, and do not reflect any compromise in the patient's medical care. Late signature. Date of Service: Jan 31, 2025 Billing Provider: RADHA FREEDMAN MD Common Visit Codes: [id number] INP/OBS CARE(HIGH) Secondary Visit Codes: [id number] CARE PLAN 30 MINUTES (20 minutes) MADHU COOK RESIDENT Jan 31, 2025 14:23 RADHA FREEDMAN MD Feb 01, 2025 06:43
--- NOTE | 2025-01-31 19:20 | DVHSR ---
APPROVED REPORT EXAM: Two-dimensional and M-mode echocardiogram with Doppler and color Doppler. Blood Pressure: 118/65 mmHg INDICATION Heart Failure RISK FACTORS Height: 5'7", Weight: 83 Mitral Valve MitralMitral Stenosis E/A ratio0.02D MVAcm2 Other Information Quality : Technically LimitedRhythm : Technically limited study due to body habitus and patient position. Conclusion MILD LVH AND MILD LV DIASTOLIC DYSFUNCTION LV EF IS 65% SLIGHTLY DILATED RV AORTIC SCEROSIS NO EFFUSION
[2025-02-01] VITALS (16 sets, daily range): BP systolic 94–120; BP diastolic 46–70; PULSE 50–78; RESP 16–18; TEMP 96.1–98.2; O2SAT 97–100
--- NOTE | 2025-02-01 06:44 | DVHPN2 ---
Subjective Nonverbal; no complaints from the family Reviewed: Care Plan, H&P, Labs, Medications, Previous Orders, Radiology Changes from previous H/P or p: No Changes Objective Vitals Vital Signs Date Time Temp Pulse Resp B/P (MAP) Pulse Ox O2 Delivery O2 Flow Rate FiO2 02/01/25 05:00 98.0 53 16 120/46 (70) 100 98.0 01/31/25 22:48 Oxymizer 6 N/A Intake/Output Intake and Output 02/01/25 07:00 Intake Total 75 ml Output Total 1525 ml Balance -1450 ml Intake Oral 75 ml Output Urine Total 1525 ml General Appearance: moderate distress, Other (Nonverbal) HEENT: Atraumatic Lungs: Other (Decreased air entry bilateral with scattered wheezing/crackles) Cardiovascular: Regular rate, Normal S1, Normal S2 Abdomen: Normal bowel sounds, Soft, No tenderness Extremities: No edema Neuro: Other (Nonverbal; moves all extremities; no focal deficits noticed) Psych/Mental Status: Other (Nonverbal) Medications Current Medications Medications Dose Ordered Sig/Leil[place] Route Start Time Stop Time Status Last Admin Dose Admin Enoxaparin Sodium 30 mg DAILY SC 01/31/25 10:00 Nitroglycerin 0.4 mg Q5MINP PRN SL 01/31/25 00:00 Ipratropium [place] 0.5 mg Q6HWA [facility] 01/31/25 06:00 01/31/25 22:48 0.5 MG Levalbuterol HCl 0.625 mg Q6HWA [facility] 01/31/25 06:00 01/31/25 22:48 0.625 MG Ceftriaxone Sodium 50 ml @ 100 mls/hr DAILY@09 IV 01/31/25 09:00 01/31/25 09:24 100 MLS/HR Pantoprazole Sodium 40 mg DAILY IV 01/31/25 10:00 01/31/25 10:49 40 MG Methylprednisolone Sodium Succinate 40 mg BID IV 01/31/25 10:00 01/31/25 21:37 40 MG Patient Own Medication 1 tab DAILY PO 01/31/25 10:00 Lisinopril 2.5 mg BID PO 01/31/25 10:00 Vancomycin HCl 0 ml @ 0 mls/hr UD IV 01/31/25 03:15 Vancomycin HCl 250 ml @ 200 mls/hr Q24H IV 02/01/25 08:00 Lorazepam 2 mg Q6H PO 01/31/25 12:00 01/31/25 18:15 2 MG Acetaminophen/ Hydrocodone Bitart 1 tab Q6H PO 01/31/25 12:00 01/31/25 18:16 1 TAB Laboratory Results Laboratory Tests 01/31/25 02:05 Urinalysis Test 01/30/25 22:19 Urine Color Colorless (Yellow) Urine Clarity Turbid (Clear) H Urine pH 6.0 (5.0-9.0) Urine Specific [place] 1.014 (1.001-1.035) Urine Protein Trace (Negative) H Urine Ketones Negative (Negative) Urine Blood Negative /uL (Negative) Urine Nitrite Negative (Negative) Urine Bilirubin Negative (Negative) Urine Urobilinogen Normal mg/dL (Negative) Urine Leukocyte Esterase 3+ /uL (Negative) Urine RBC 1 /hpf (0 - 4) Urine WBC Clumps Present /hpf (None Seen) Urine Microscopic WBC 96 /HPF (0-5) H Urine Squamous Epithelial Cells Few /hpf (<5) Urine Bacteria Mod /hpf (None Seen) H Urine Glucose Normal mg/dL (Normal) Blood Gas Results Test 01/31/25 08:17 Arterial Blood pH 7.520 (7.350-7.450) FiO2 % 52.0 Labs and/or images reviewed: Labs reviewed by me, Image(s) reviewed by me Assessment/Plan Assessment/Plan Covering: Suspected sepsis due to aspiration pneumonia and complicated UTI Suspected SAM in the setting of suspected sepsis Acute Hypoxic respiratory failure due to aspiration pneumonia Complicated UTI Decubitus sacral wound; present on admission Chronic HIV infection History of hepatitis C Advancing dementia Bed-bound History of seizures Hypertensive heart disease # GERD Hiatal hernia Severe malnutrition due to advancing dementia Elevated D-dimer; PEs and DVTs ruled out Continue oxygen therapy via high-flow nasal cannula and adjust as indicated Continue antihypertensive medication and adjust according to blood pressure monitoring Continue home medications To keep NPO for now except medications Continue IV antibiotics and IV steroids along with nebulizers Telemetry in the setting of high oxygen requirement Avoid nephrotoxic agents Continue monitoring Ongoing discussion regarding comfort care/hospice with the family Late Entry. This medical document was created using an electronic medical record system with computerized dictation system. Although this document has been carefully reviewed, there might still be some phonetic and typographical errors. These areas are purely typographical due to imperfections of the software programs, and do not reflect any compromise in the patient's medical care. Plan discussed with: Other (Nurse; granddaughter) My Orders Orders - RADHA FREEDMAN MD Procedure Category Date Status Time Lorazepam Tablet PHA 01/31/25 In Process (Ativan Tablet) 12:00 Hydrocodone-Acet PHA 01/31/25 In Process 10/325mg Tab ([place] 12:00 Pureed DIET 01/31/25 Transmitted Dinner Date of Service: Feb 01, 2025 Billing Provider: RADHA FREEDMAN MD Common Visit Codes: [id number] INP/OBS CARE(HIGH) RADHA FREEDMAN MD Feb 01, 2025 06:44
[2025-02-01 07:50] LABS: Hematocrit 29.5 % (36.0-46.0); Hemoglobin 9.6 g/dL (12.2-16.2); Mean Corpuscular Hemoglobin 25.2 pg (28.0-32.0); Mean Corpuscular Volume 77.5 fL (80.0-100.0); Nucleated Red Blood Cells % 0.0 %
[2025-02-01 08:06] LABS: Anion Gap 11 (5-15); Carbon Dioxide 22 mmol/L (20-31); Potassium 4.6 mmol/L (3.5-5.1); Sodium 140 mmol/L (136-145)
[2025-02-01 08:10] LABS: Calcium 8.6 mg/dL (8.7-10.4); Chloride 107 mmol/L (98-107)
[2025-02-01 08:12] LABS: BUN/Creatinine Ratio 31.5 (10.0-20.0)
[2025-02-01 08:16] LABS: Blood Urea Nitrogen 35 mg/dL (9-23); Glucose 165 mg/dL (74-106)
[2025-02-01] MEDS: VANCOMYCIN 1GM/250ML KIT 250 ML IV SCH (09:08)
[2025-02-02] VITALS (12 sets, daily range): BP systolic 105–135; BP diastolic 51–85; PULSE 42–64; RESP 14–18; TEMP 97.8–98.7; O2SAT 96–100
[2025-02-02 06:36] LABS: Chloride 107 mmol/L (98-107); Sodium 137 mmol/L (136-145)
[2025-02-02 06:37] LABS: Anion Gap 7 (5-15); Carbon Dioxide 23 mmol/L (20-31)
[2025-02-02 06:42] LABS: BUN/Creatinine Ratio 43.3 (10.0-20.0)
[2025-02-02 07:02] LABS: Blood Urea Nitrogen 39 mg/dL (9-23); Calcium 8.6 mg/dL (8.7-10.4); Glucose 165 mg/dL (74-106); Potassium 5.3 mmol/L (3.5-5.1)
--- NOTE | 2025-02-02 08:22 | DVHPN2 ---
Subjective Nonverbal; no complaints from the family Reviewed: Care Plan, H&P, Labs, Medications, Previous Orders, Radiology Changes from previous H/P or p: No Changes Objective Vitals Vital Signs Date Time Temp Pulse Resp B/P (MAP) Pulse Ox O2 Delivery O2 Flow Rate FiO2 02/02/25 06:23 56 18 100 02/02/25 06:15 Nasal Cannula* 2 28 02/02/25 05:21 98.3 135/85 (102) 98.3 Intake/Output Intake and Output 02/02/25 07:00 Intake Total 605 ml Output Total 1075 ml Balance -470 ml Intake Oral 605 ml Output Urine Total 1075 ml General Appearance: moderate distress, Other (Nonverbal) HEENT: Atraumatic Lungs: Other (Decreased air entry bilateral with scattered wheezing/crackles) Cardiovascular: Regular rate, Normal S1, Normal S2 Abdomen: Normal bowel sounds, Soft, No tenderness Extremities: No edema Neuro: Other (Nonverbal; moves all extremities; no focal deficits noticed) Psych/Mental Status: Other (Nonverbal) Medications Current Medications Medications Dose Ordered Sig/[place] Route Start Time Stop Time Status Last Admin Dose Admin Enoxaparin Sodium 30 mg DAILY SC 01/31/25 10:00 Nitroglycerin 0.4 mg Q5MINP PRN SL 01/31/25 00:00 Ipratropium [place] 0.5 mg Q6HWA [facility] 01/31/25 06:00 02/02/25 06:15 0.5 MG Levalbuterol HCl 0.625 mg Q6HWA [facility] 01/31/25 06:00 02/02/25 06:15 0.625 MG Ceftriaxone Sodium 50 ml @ 100 mls/hr DAILY@09 IV 01/31/25 09:00 02/01/25 09:06 100 MLS/HR Pantoprazole Sodium 40 mg DAILY IV 01/31/25 10:00 02/01/25 09:06 40 MG Methylprednisolone Sodium Succinate 40 mg BID IV 01/31/25 10:00 02/01/25 22:19 40 MG Lisinopril 2.5 mg BID PO 01/31/25 10:00 02/01/25 09:08 2.5 MG Vancomycin HCl 0 ml @ 0 mls/hr UD IV 01/31/25 03:15 Vancomycin HCl 250 ml @ 200 mls/hr Q24H IV 02/01/25 08:00 02/01/25 09:08 200 MLS/HR Lorazepam 2 mg Q6H PO 01/31/25 12:00 02/02/25 06:48 2 MG Acetaminophen/ Hydrocodone Bitart 1 tab Q6H PO 01/31/25 12:00 02/01/25 18:47 1 TAB Laboratory Results Laboratory Tests 02/01/25 05:41 02/02/25 05:44 Chemistry Test 02/02/25 05:44 Calcium Level 8.6 mg/dL (8.7-10.4) L Urinalysis Test 01/30/25 22:19 Urine Color Colorless (Yellow) Urine Clarity Turbid (Clear) H Urine pH 6.0 (5.0-9.0) Urine Specific [place] 1.014 (1.001-1.035) Urine Protein Trace (Negative) H Urine Ketones Negative (Negative) Urine Blood Negative /uL (Negative) Urine Nitrite Negative (Negative) Urine Bilirubin Negative (Negative) Urine Urobilinogen Normal mg/dL (Negative) Urine Leukocyte Esterase 3+ /uL (Negative) Urine RBC 1 /hpf (0 - 4) Urine WBC Clumps Present /hpf (None Seen) Urine Microscopic WBC 96 /HPF (0-5) H Urine Squamous Epithelial Cells Few /hpf (<5) Urine Bacteria Mod /hpf (None Seen) H Urine Glucose Normal mg/dL (Normal) Microbiology Microbiology Date/Time Source Procedure Growth Status 01/31/25 07:00 Blood Blood Culture - Preliminary NO GROWTH AFTER 48 HOURS OF INCUBATION. Resulted 01/31/25 04:49 Nose MRSA Screen - Final Complete 01/30/25 22:19 Voided Urine Urine Culture - Preliminary Resulted Labs and/or images reviewed: Labs reviewed by me, Image(s) reviewed by me Assessment/Plan Assessment/Plan Covering: Suspected sepsis due to aspiration pneumonia and complicated Escherichia coli & Enterococcus faecalis UTI Suspected SAM in the setting of suspected sepsis Acute Hypoxic respiratory failure due to aspiration pneumonia Complicated UTI Decubitus sacral wound; present on admission Chronic HIV infection History of hepatitis C Advancing dementia Bed-bound History of seizures Hypertensive heart disease Hiatal hernia Severe malnutrition due to advancing dementia Elevated D-dimer; PEs and DVTs ruled out Continue oxygen therapy via high-flow nasal cannula and adjust as indicated Continue antihypertensive medication and adjust according to blood pressure monitoring Continue home medications Pureed diet; aspiration precautions Continue IV antibiotics and IV steroids along with nebulizers Telemetry in the setting of high oxygen requirement Switched IV antibiotics to oral ciprofloxacin based on the final results of urine culture and negative MRSA screen Reviewed lab work and imaging studies Reviewed blood and urine cultures Avoid nephrotoxic agents Wound care is following Continue monitoring Social Service consulted to arrange for home hospice on Monday February 03, 2025 Late Entry. This medical document was created using an electronic medical record system with computerized dictation system. Although this document has been carefully reviewed, there might still be some phonetic and typographical errors. These areas are purely typographical due to imperfections of the software programs, and do not reflect any compromise in the patient's medical care. Plan discussed with: Other (Nurse) My Orders Orders - RADHA FREEDMAN MD Procedure Category Date Status Time Cleanse Wound With SHARI 02/01/25 In Process Wound Clean 10:40 * Dietary Consult CONS 02/01/25 Transmitted 15:50 Apply Z-Guard SHARI 02/01/25 In Process 10:40 Date of Service: Feb 02, 2025 Billing Provider: RADHA FREEDMAN MD Common Visit Codes: [id number] INP/OBS CARE(HIGH) RADHA FREEDMAN MD Feb 02, 2025 08:22
[2025-02-02 11:50] LABS: Hematocrit 29.2 % (36.0-46.0); Hemoglobin 9.2 g/dL (12.2-16.2)
[2025-02-02 12:09] LABS: Anion Gap 9 (5-15); Carbon Dioxide 23 mmol/L (20-31); Chloride 106 mmol/L (98-107); Potassium 4.7 mmol/L (3.5-5.1); Sodium 138 mmol/L (136-145)
[2025-02-02 12:11] LABS: Calcium 8.6 mg/dL (8.7-10.4)
[2025-02-02 12:15] LABS: BUN/Creatinine Ratio 44.0 (10.0-20.0); Blood Urea Nitrogen 37 mg/dL (9-23); Glucose 162 mg/dL (74-106)
[2025-02-02] MEDS: CIPROFLOXACIN HCL 500 MG TAB PO SCH (21:18)
[2025-02-03] VITALS (7 sets, daily range): BP systolic 108–115; BP diastolic 46–63; PULSE 37–51; RESP 12–20; TEMP 36.4; O2SAT 97–100
[2025-02-03 07:10] LABS: Anion Gap 7 (5-15); Carbon Dioxide 25 mmol/L (20-31); Chloride 104 mmol/L (98-107); Potassium 5.1 mmol/L (3.5-5.1); Sodium 136 mmol/L (136-145)
[2025-02-03 07:11] LABS: Calcium 8.6 mg/dL (8.7-10.4)
[2025-02-03 07:16] LABS: BUN/Creatinine Ratio 43.6 (10.0-20.0); Blood Urea Nitrogen 34 mg/dL (9-23); Glucose 130 mg/dL (74-106)
[2025-02-03 07:21] LABS: Hemoglobin 9.8 g/dL (12.2-16.2); Mean Corpuscular Hemoglobin 25.4 pg (28.0-32.0)
[2025-02-03 07:23] LABS: Hematocrit 30.6 % (36.0-46.0); Mean Corpuscular Volume 79.6 fL (80.0-100.0)
[2025-02-03 09:24] LABS: Total Cells Counted 100.0 (100)
[2025-02-03] MEDS: AMPICILLIN & SULBACTAM SODIUM 3 GM in SODIUM CHL 0.9% 100 ML IV SCH (10:45)
[2025-02-03] MEDS: AZITHROMYCIN 500MG/ 250ML 250 ML IV SCH (10:45)
[2025-02-03] MEDS ORDERED: AMOX250S69 PO (14:55)
[2025-02-03] MEDS ORDERED: IPRA0.03 (14:55)
[2025-02-03] MEDS ORDERED: NITR1SUS3 PO (14:55)
--- NOTE | 2025-02-03 14:58 | DVHDS2 ---
Discharge Summary Date of Admission Jan 30, 2025 at 23:48 Date of Discharge: Feb 03, 2025 Labs/Diagnostic Data: Laboratory Results Test 02/03/25 06:00 02/02/25 05:44 02/01/25 05:41 01/31/25 08:17 White Blood Count 6.9 10^3/uL (4.4-10.8) Red Blood Count 3.84 10^6/uL (4.0-5.20) Hemoglobin 9.8 g/dL (12.2-16.2) Hematocrit 30.6 % (36.0-46.0) Mean Corpuscular Volume 79.6 fL (80.0-100.0) Mean Corpuscular Hemoglobin 25.4 pg (28.0-32.0) Mean Corpuscular Hemoglobin Concent 32.0 g/dL (32.0-36.0) Red Cell Distribution Width 18.4 % (11.8-14.3) Platelet Count 264 10^3/uL (140-450) Mean Platelet Volume 8.7 fL (6.9-10.8) Neutrophils (%) (Auto) % (37.0-80.0) Lymphocytes (%) (Auto) % (10.0-50.0) Monocytes (%) (Auto) % (0.0-12.0) Basophils (%) (Auto) % (0.0-2.0) Neutrophils # (Auto) 10 ^3/uL (1.6-8.6) Lymphocytes # (Auto) 10 ^3/uL (0.4-5.4) Monocytes # (Auto) 10 ^3/uL (0-1.3) Differential Total Cells Counted 100.0 (100) Neutrophils % (Manual) 95 (37.0-80.0) Band Neutrophils % (Manual) 0 Lymphocytes % (Manual) 3 (10.0-50.0) Monocytes % (Manual) 2 (0-12) Eosinophils % (Manual) 0 (0-7) Basophils % (Manual) 0 (0.0-2.0) Metamyelocytes % (manual) 0 Myelocytes % (Manual) 0 Promyelocytes % (Manual) 0 Blast Cells % (Manual) 0 Reactive Lymphocytes 0 Platelet Estimate Adequate Sodium Level 136 mmol/L (136-145) Potassium Level 5.1 mmol/L (3.5-5.1) Chloride Level 104 mmol/L (98-107) Carbon Dioxide Level 25 mmol/L (20-31) Anion Gap 7 (5-15) Blood Urea Nitrogen 34 mg/dL (9-23) Creatinine 0.78 mg/dL (0.550-1.02) Glomerular Filtration Rate Calc 75 mL/min (>90) BUN/Creatinine Ratio 43.6 (10.0-20.0) Serum Glucose 130 mg/dL (74-106) Calcium Level 8.6 mg/dL (8.7-10.4) Random Vancomycin Level 17.2 ug/mL (5-10) Eosinophils (%) (Auto) 0.0 % (0.0-7.0) Eosinophils # (Auto) 0 10 ^3/uL (0-0.8) Basophils # (Auto) 0 10 ^3/uL (0-0.2) Nucleated Red Blood Cells 0.0 % Blood Gas Specimen Type Arterial Blood Gas Sample Site Right radial Blood Gas Patient Temperature 37.0 Arterial Blood Date Drawn [id number] Arterial Blood pH 7.520 (7.350-7.450) Arterial Blood Partial Pressure CO2 24.2 mmHg (32.0-45.0) Arterial Blood Partial Pressure O2 91.9 mmHg (83.0-108.0) Arterial Blood HCO3 19.3 mmol/L (21.0-28.0) Arterial Blood Oxygen Saturation 97.0 % (94.0-98.0) Arterial Blood Base Excess -2.2 mmol/L (-2.0-3.0) Arterial Blood Oxyhemoglobin 96.3 % (94.0-98.0) Arterial Blood Carboxyhemoglobin 0.3 % (0.5-1.5) Arterial Blood Methemoglobin 0.4 % (0.0-1.5) [place] Test Yes Blood Gas Total Hemoglobin 11.50 g/dL (12.0-16.0) Blood Gas Modality Oxymizer FiO2 % 52.0 Test 01/31/25 02:05 01/31/25 00:35 01/30/25 22:19 01/30/25 19:50 Lactic Acid Level 2.0 mmol/L (0.4-2.0) Total Bilirubin 0.3 mg/dL (0.2-1.0) Aspartate Amino Transferase (AST) 16 U/L (13-40) Alanine Aminotransferase (ALT) < 9 U/L (7-40) Alkaline Phosphatase 96 U/L (46-116) Total Protein 7.5 g/dL (5.7-8.2) Albumin 3.1 g/dL (3.2-4.8) Prothrombin Time 10.2 sec (9.3-11.8) Prothrombin Time INR 0.96 (0.9-1.15) Activated Partial Thromboplast Time 34.3 SEC (24.5-34.5) Urine Color Colorless (Yellow) Urine Clarity Turbid (Clear) Urine pH 6.0 (5.0-9.0) Urine Specific [place] 1.014 (1.001-1.035) Urine Protein Trace (Negative) Urine Ketones Negative (Negative) Urine Blood Negative /uL (Negative) Urine Nitrite Negative (Negative) Urine Bilirubin Negative (Negative) Urine Urobilinogen Normal mg/dL (Negative) Urine Leukocyte Esterase 3+ /uL (Negative) Urine RBC 1 /hpf (0 - 4) Urine WBC Clumps Present /hpf (None Seen) Urine Microscopic WBC 96 /HPF (0-5) Urine Squamous Epithelial Cells Few /hpf (<5) Urine Bacteria Mod /hpf (None Seen) Urine Glucose Normal mg/dL (Normal) Urine Opiates Screen Pos (NEGATIVE) Urine Fentanyl Screen Neg (NEGATIVE) Urine Barbiturates Screen Neg (NEGATIVE) Urine Phencyclidine Screen Neg (NEGATIVE) Urine Amphetamines Screen Neg (NEGATIVE) Urine Benzodiazepines Screen Neg (NEGATIVE) Urine Cocaine Screen Neg (NEGATIVE) Urine Cannabinoids Screen Neg (NEGATIVE) Phosphorus Level 3.3 mg/dL (2.4-5.1) Magnesium Level 2.2 mg/dL (1.6-2.6) Troponin I High Sensitivity < 3 ng/L (</=34) Test 01/30/25 18:54 D-Dimer, Quantitative 0.94 mg/L FEU (0.0-0.49) Hemoglobin A1c 5.7 % A1C (<5.7) B-Type Natriuretic Peptide 81.90 pg/mL (0-100) Vitamin B12 Level 597 pg/mL (211-911) Vitamin D 25-Hydroxy 39.9 ng/mL (30.0-100) Thyroid Stimulating Hormone (TSH) 3.04 uIU/mL (0.55-4.78) Other Laboratory Tests 02/03/25 06:00 Brief Hx & Hospital Course: Brianda Eckert is a 84year old female with past medical history Hypertension, Dementia, HIV, hepatitis-C, seizures, patient who presents to ED brought by EMS due to sudden dyspnea after eating a meal. Patient is nonverbal due to history of dementia and is on home hospice. Tried to call daughter on admission but did not chicken picker the phone, obtain information from EMR and nursing staff. Patient was eating pizza started choking and then became short of breath, upon arrival EMS patient was saturating 69% in room air and was cyanotic, requiring non-rebreather mask at 15 L/min 02/03: Patient here with hypoxic respiratory failure due to aspiration pneumonia, she uses oxygen as needed at home. Patient also had SAM and acute complicated cystitis. Patient continues to improve tachypnea improving. Patient family want to go and return to hospice. Stable for discharge as per plan below. Diagnosis: Suspected sepsis due to aspiration pneumonia and complicated Escherichia coli & Enterococcus faecalis UTI Suspected SAM in the setting of suspected sepsis, SAM due to VMN Acute Hypoxic respiratory failure due to aspiration pneumonia Complicated UTI Decubitus sacral wound; present on admission Chronic HIV infection History of hepatitis C Advanced dementia , prior hospice diagnosis Bed-bound History of seizures Hypertensive heart disease Hiatal hernia Severe malnutrition due to advancing dementia Elevated D-dimer; PEs and DVTs ruled out Plan: -Returned to hospice for advanced dementia -Take Augmentin solution 875 mg twice daily 5 days -Take nitrofurantoin suspension 100 mg twice daily for 5 days - not needing oxygen -Okay to use ipratropium nebulizer as needed Condition at Discharge: Guarded Final Diagnosis/Problems List Suspected sepsis due to aspiration pneumonia and complicated Escherichia coli & Enterococcus faecalis UTI Suspected SAM in the setting of suspected sepsis, SAM due to VMN Acute Hypoxic respiratory failure due to aspiration pneumonia Complicated UTI Decubitus sacral wound; present on admission Chronic HIV infection History of hepatitis C Advanced dementia , prior hospice diagnosis Bed-bound History of seizures Hypertensive heart disease Hiatal hernia Severe malnutrition due to advancing dementia Elevated D-dimer; PEs and DVTs ruled out Discharge Disposition: Hospice - Home Discharge Instruct/Medications Scheduled Amoxicillin & Pot Clavulanate (Amoxicillin/Clavulanate P), 875 MG PO BID Wergzpacwbx-Ndzialvhjhkim-Tbus (Biktarvy 50-200-25 mg), 1 TAB PO DAILY, (Reported) Lisinopril (Lisinopril), 2.5 MG PO BID, (Reported) Nitrofurantoin (Nitrofurantoin), 100 MG PO BID Omeprazole (Gnp Omeprazole), 20 MG PO BIDAC, (Reported) [Peganone], DAILY, (Reported) Scheduled PRN Ipratropium [place] (Ipratropium [place]), 0.03 % NA TIDP PRN Discharge Statement: "Patient was advised to return to the ER or call 911 if any headaches, dizziness, shortness of breath, chest pain, abdominal pain, bleeding, fevers, or worsening of medical condition. Patient was counseled about treatment plan, medications, possible side effects, patientverbalized understanding. All questions were answered to the best of my ability. This discharge took greater then 30 minutes in planning, reviewing documentation, counseling the patient, and discussing with other team members." ASSESSMENT ASSESSMENT Assessment Date of Service: Feb 03, 2025 Billing Provider: JOANNA COHEN MD Common Visit Codes: [id number] DISCH DAY >30min JOANNA COHEN MD Feb 03, 2025 14:58
[2025-02-03 15:24] LABS: Base Excess -2.3 mmol/L (-2.0-3.0)
== END 2025-02-03 20:42 | disposition hospice, home (50) | DRG 871 ==
LOC: EDBD 18:37 → ER 18:37 → OVERFLOW 22:50 → TELE-CENTR 01-31 02:25
PROVIDERS: ADMIT Student in an Organized Health Care Education/Training Program; ATTEND Student in an Organized Health Care Education/Training Program
DX: A41.51 Sepsis due to Escherichia coli [E. coli] (principal); E43 Unspecified severe protein-calorie malnutrition; J69.0 Pneumonitis due to inhalation of food and vomit; J96.01 Acute respiratory failure with hypoxia; N17.0 Acute kidney failure with tubular necrosis; N30.00 Acute cystitis without hematuria; Z68.1 Body mass index [BMI] 19.9 or less, adult; F03.90 Unspecified dementia, unspecified severity, without behavioral disturbance, psychotic disturbance, mood disturbance, and anxiety; K21.9 Gastro-esophageal reflux disease without esophagitis; L89.152 Pressure ulcer of sacral region, stage 2; K44.9 Diaphragmatic hernia without obstruction or gangrene; I11.9 Hypertensive heart disease without heart failure; N13.9 Obstructive and reflux uropathy, unspecified; E83.51 Hypocalcemia; Z74.01 Bed confinement status; Z88.5 Allergy status to narcotic agent; Z88.8 Allergy status to other drugs, medicaments and biological substances; Z79.2 Long term (current) use of antibiotics; Z79.899 Other long term (current) drug therapy
CPT/HCPCS: 36415; 36600; 71045; 71275; 80048; 80053; 80202; 80307; 81001; 82306; 82607; 82805; 83036; 83605; 83735; 83880; 84100; 84443; 84484; 85007; 85014; 85018; 85025; 85027; 85379; 85610; 85730; 87040; 87081; 87086; 87088; 87186; 93005; 93306; 93970; 94640; 96365; 99291; G0378; J2470